=== PATIENT | male | born 1960 | race Caucasian/White ===

== ENCOUNTER 2021-11-04 17:10 | Inpatient (IN) | payer BC, OTHER ==
[2021-11-04] MEDS ORDERED: ONDANSETRON 4 MG/2 ML VIAL IVP STA (17:49)
[2021-11-04] MEDS ORDERED: SODIUM CHLORIDE 0.9% 500 ML 500 ML IV STA (17:49)
[2021-11-04] MEDS ORDERED: MORPHINE SULFATE 4 MG/ML SYRINGE IV STA (17:49)
--- NOTE | 2021-11-04 18:00 | ED ---
Abdominal Pain HPI - General Chief Complaint: Abdominal Pain Stated Complaint: abd pain Time Seen by Provider: 11/04/21 17:23 Source: patient Mode of arrival: ambulatory Limitations: no limitations - History of Present Illness Initial Comments: 61 year-old male patient present for evaluation of lower abdominal pain. Patient states he has been having symptoms on and off for the last 2 years. States that he has been diagnosed with BPH and multiple urinary tract infections but nothing ever helps. Has not had any imaging done. States that over the last three months he has had steadily increasing pain. States over the last two days it has been at its worst. States he has been unable to get out of bed. States he has had some gagging and nausea. Reports an intense burning in his lower abdomen. States he has been constipated. States he'll have small hard bowel movements and then will have diarrhea. Denies any hematochezia or melena. States he has difficulty getting urine out. Denies fever or chills. Did have appendectomy as a child. No other abdominal surgeries. Patient denies any recent rash, cough, shortness of breath, chest pain, back pain, numbness, tingling, headache, visual changes, or any other complaints. - Related Data Home Medications Medication Instructions Recorded Confirmed Atorvastatin [Lipitor] 20 mg PO HS 11/04/21 11/04/21 Chlorthalidone [Hygroten] 25 mg PO DAILY 11/04/21 11/04/21 Insuln Asp Prt/Insulin Aspart 30 unit SQ HS 11/04/21 11/04/21 [NovoLOG MIX 70-30 VIAL] Insuln Asp Prt/Insulin Aspart 70 unit SQ DAILY 11/04/21 11/04/21 [NovoLOG MIX 70-30 VIAL] amLODIPine [Norvasc] 10 mg PO DAILY 11/04/21 11/04/21 lisinopriL 40 mg PO DAILY 11/04/21 11/04/21 Allergies Allergy/AdvReac Type Severity Reaction Status Date / Time No Known Allergies Allergy Verified 11/04/21 19:04 Review of Systems ROS Statement: Those systems with pertinent positive or pertinent negative responses have been documented in the HPI. ROS Other: All systems not noted in ROS Statement are negative. Past Medical History Past Medical History: Diabetes Mellitus, Hypertension, Prostate Disorder History of Any Multi-Drug Resistant Organisms: None Reported Past Surgical History: Appendectomy Past Psychological History: No Psychological Hx Reported Smoking Status: Never smoker Past Alcohol Use History: None Reported Past Drug Use History: None Reported General Exam Limitations: no limitations General appearance: alert, in no apparent distress, other (This is a well- developed, well-nourished adult male in mild distress related to pain.) ENT exam: Present: normal exam, normal oropharynx, mucous membranes moist Respiratory exam: Present: normal lung sounds bilaterally. Absent: respiratory distress, wheezes, rales, rhonchi, stridor Cardiovascular Exam: Present: normal rhythm, tachycardia, normal heart sounds. Absent: systolic murmur, diastolic murmur, rubs, gallop, clicks GI/Abdominal exam: Present: soft, tenderness (Generalized worse over the suprapubic region), normal bowel sounds. Absent: distended, guarding, rebound, rigid Neurological exam: Present: alert, oriented X3, CN II-XII intact Psychiatric exam: Present: normal affect, normal mood Skin exam: Present: warm, dry, intact, normal color. Absent: rash Course Vital Signs 11/04/21 11/04/21 17:15 18:22 Temperature 98.1 F Pulse Rate 102 H 105 H Respiratory 18 16 Rate Blood Pressure 120/78 100/64 O2 Sat by Pulse 100 97 Oximetry Medical Decision Making - Medical Decision Making 61 year-old male patient presents for evaluation of lower abdominal pain and urinary retention. Physical exam revealed generalized abdominal tenderness worse over the suprapubic region. Bladder scan was 104ml. Labs reviewed and were unremarkable. CT abdomen and pelvis shows evidence for sigmoid diverticulitis. Patient remains quite uncomfortable despite doses of pain medication. He will be admitted for IV antibiotics and further monitoring. Patient is agreeable. Case discussed with my attending Dr. Key. - Lab Data Result diagrams: 11/04/21 17:56 11/04/21 17:56 Lab Results 11/04/21 11/04/21 11/04/21 Range/Units 17:56 17:56 17:56 WBC 10.3 (3.8-10.6) k/uL RBC 5.44 (4.30-5.90) m/uL Hgb 13.8 (13.0-17.5) gm/dL Hct 42.1 (39.0-53.0) % MCV 77.4 L (80.0-100.0) fL MCH 25.4 (25.0-35.0) pg MCHC 32.9 (31.0-37.0) g/dL RDW 15.0 (11.5-15.5) % Plt Count 316 (150-450) k/uL MPV 6.8 Neutrophils % 73 % Lymphocytes % 19 % Monocytes % 5 % Eosinophils % 1 % Basophils % 0 % Neutrophils # 7.6 (1.3-7.7) k/uL Lymphocytes # 1.9 (1.0-4.8) k/uL Monocytes # 0.5 (0-1.0) k/uL Eosinophils # 0.1 (0-0.7) k/uL Basophils # 0.0 (0-0.2) k/uL Sodium 137 (137-145) mmol/L Potassium 4.8 (3.5-5.1) mmol/L Chloride 103 (98-107) mmol/L Carbon Dioxide 20 L (22-30) mmol/L Anion Gap 14 mmol/L BUN 26 H (9-20) mg/dL Creatinine 1.73 H (0.66-1.25) mg/dL Est GFR (CKD-EPI)AfAm 48 (>60 ml/min/1.73 sqM) Est GFR (CKD-EPI)NonAf 42 (>60 ml/min/1.73 sqM) Glucose 162 H (74-99) mg/dL Plasma Lactic Acid Td 1.6 (0.7-2.0) mmol/L Calcium 10.0 (8.4-10.2) mg/dL Total Bilirubin 0.7 (0.2-1.3) mg/dL AST 26 (17-59) U/L ALT 20 (4-49) U/L Alkaline Phosphatase 123 (38-126) U/L Total Protein 8.4 H (6.3-8.2) g/dL Albumin 4.7 (3.5-5.0) g/dL Lipase 69 (23-300) U/L Urine Color Urine Appearance (Clear) Urine pH (5.0-8.0) Ur Specific [place] (1.001-1.035) Urine Protein (Negative) Urine Glucose (UA) (Negative) Urine Ketones (Negative) Urine Blood (Negative) Urine Nitrite (Negative) Urine Bilirubin (Negative) Urine Urobilinogen (<2.0) mg/dL Ur Leukocyte Esterase (Negative) 11/04/21 Range/Units 20:17 WBC (3.8-10.6) k/uL RBC (4.30-5.90) m/uL Hgb (13.0-17.5) gm/dL Hct (39.0-53.0) % MCV (80.0-100.0) fL MCH (25.0-35.0) pg MCHC (31.0-37.0) g/dL RDW (11.5-15.5) % Plt Count (150-450) k/uL MPV Neutrophils % % Lymphocytes % % Monocytes % % Eosinophils % % Basophils % % Neutrophils # (1.3-7.7) k/uL Lymphocytes # (1.0-4.8) k/uL Monocytes # (0-1.0) k/uL Eosinophils # (0-0.7) k/uL Basophils # (0-0.2) k/uL Sodium (137-145) mmol/L Potassium (3.5-5.1) mmol/L Chloride (98-107) mmol/L Carbon Dioxide (22-30) mmol/L Anion Gap mmol/L BUN (9-20) mg/dL Creatinine (0.66-1.25) mg/dL Est GFR (CKD-EPI)AfAm (>60 ml/min/1.73 sqM) Est GFR (CKD-EPI)NonAf (>60 ml/min/1.73 sqM) Glucose (74-99) mg/dL Plasma Lactic Acid Td (0.7-2.0) mmol/L Calcium (8.4-10.2) mg/dL Total Bilirubin (0.2-1.3) mg/dL AST (17-59) U/L ALT (4-49) U/L Alkaline Phosphatase (38-126) U/L Total Protein (6.3-8.2) g/dL Albumin (3.5-5.0) g/dL Lipase (23-300) U/L Urine Color Yellow Urine Appearance Clear (Clear) Urine pH 7.0 (5.0-8.0) Ur Specific [place] 1.017 (1.001-1.035) Urine Protein Negative (Negative) Urine Glucose (UA) Negative (Negative) Urine Ketones Negative (Negative) Urine Blood Negative (Negative) Urine Nitrite Negative (Negative) Urine Bilirubin Negative (Negative) Urine Urobilinogen <2.0 (<2.0) mg/dL Ur Leukocyte Esterase Negative (Negative) - Radiology Data Radiology results: report reviewed, image reviewed CT abdomen and pelvis without contrast was obtained. Report was reviewed in its entirety. Impression by Dr. Marie shows evidence for minimal sigmoid diverticulitis. There is moderate sigmoid diverticulosis. Disposition Clinical Impression: Diverticulitis, Urinary retention Disposition: ADMITTED IP TO THIS [facility] Condition: Serious Referrals: Nonstaff,Physician [Primary Care Provider] - 1-2 days Decision to Admit Reason: Admit from EC Decision Date: 11/04/21 Decision Time: 20:35
[2021-11-04 18:40] LABS: Basophils % (A) 0 %; Eosinophils # (A) 0.1 k/uL (0-0.7); Eosinophils % (A) 1 %; HCT 42.1 % (39.0-53.0); HGB 13.8 gm/dL (13.0-17.5); Lymphocytes # (A) 1.9 k/uL (1.0-4.8); Lymphocytes % (A) 19 %; MCH 25.4 pg (25.0-35.0); MCHC 32.9 g/dL (31.0-37.0); MCV 77.4 fL (80.0-100.0); Mean Platelet Volume 6.8; Monocytes # (A) 0.5 k/uL (0-1.0); Monocytes % (A) 5 %; Neutrophils # (A) 7.6 k/uL (1.3-7.7); Neutrophils % (A) 73 %; Platelet Count 316 k/uL (150-450); RBC 5.44 m/uL (4.30-5.90); WBC 10.3 k/uL (3.8-10.6)
[2021-11-04 18:53] LABS: Albumin 4.7 g/dL (3.5-5.0); Total Bilirubin 0.7 mg/dL (0.2-1.3); Total Protein 8.4 g/dL (6.3-8.2)
[2021-11-04] MEDS ORDERED: MORPHINE SULFATE 4 MG/ML SYRINGE IVP STA (19:14)
[2021-11-04 19:23] LABS: Potassium 4.8 mmol/L (3.5-5.1)
--- NOTE | 2021-11-04 20:01 | CT ---
EXAMINATION TYPE: CT abdomen pelvis wo con DATE OF EXAM: 11/04/2021 COMPARISON: None HISTORY: lower abd pain CT DLP: 870.6 mGycm Automated exposure control for dose reduction was used. Images obtained from the diaphragm to the floor the pelvis with no contrast. Lung bases are clear of consolidation. There is no pleural effusion. Heart size is normal. There is n o pericardial effusion. Liver spleen and stomach pancreas gallbladder appear normal. The bile ducts are not dilated. There is no adrenal mass. Kidneys have normal size. There is no hydronephrosis. Ureters are nondilated. There is 5 mm calculus lower pole right kidney. There is no retroperitoneal adenopathy. Bladder distends s moothly. There is no inguinal hernia. There are prostatic calcifications. There is no free fluid in t he pelvis. There is no evidence of pelvic mass. There are multiple sigmoid diverticula. There is some minimal fat stranding around the mid sigmoid colon. There is no ascites or free air. There is no bowel obstruction. Appendix not seen. No sign of thicken ed appendix. The lumbar vertebrae have fairly normal alignment. There is no compression fracture. There is disc sp serena narrowing at L5-S1. Bony pelvis is intact. The hip joints are intact. There is bilateral moderate hypertrophic acetabular spurring. Sacroiliac joints are intact. IMPRESSION: There is evidence for some minimal sigmoid diverticulitis. There is moderate sigmoid diverticulosis.
[2021-11-04] MEDS ORDERED: NALOXONE 0.4 MG/ML 1 ML VIAL IV PRN (20:32)
[2021-11-04] MEDS ORDERED: PIPERACILLIN-TAZOBACTAM 3.375 GM in SODIUM CHLORIDE 0.9% 100 ML IVPB STA (20:32)
[2021-11-04] MEDS ORDERED: ONDANSETRON 4 MG/2 ML VIAL IVP PRN (20:32)
[2021-11-04 20:54] LABS: Appearance,Urine Clear (Clear); Bilirubin,Urine Negative (Negative); Blood,Urine Negative (Negative); Color,Urine Yellow; Glucose,Urine (UA) Negative (Negative); Ketones,Urine Negative (Negative); Leukocyte Esterase,Urine Negative (Negative); Nitrite,Urine Negative (Negative); Protein,Urine Negative (Negative); Specific Gravity,Urine 1.017 (1.001-1.035); Urobilinogen,Urine <2.0 mg/dL (<2.0)
[2021-11-04] MEDS: MORPHINE SULFATE 4 MG/ML SYRINGE IV PRN (21:27)
[2021-11-04] MEDS: SODIUM CHLORIDE 0.9% 1,000 ML IV SCH (21:28)
[2021-11-05] MEDS ORDERED: LORazepam 2 MG/ML INJ IV STA (00:23)
[2021-11-05] MEDS: MORPHINE SULFATE 4 MG/ML SYRINGE IV PRN ×3 (01:39→20:51)
[2021-11-05] MEDS: PIPERACILLIN-TAZOBACTAM 3.375 GM in SODIUM CHLORIDE 0.9% 100 ML IVPB SCH ×3 (05:15→20:52)
[2021-11-05 07:07] LABS: Glucose,Whole Blood 180 mg/dL (75-99)
[2021-11-05] MEDS: INSULIN ASPART (NovoLOG) 100 UNIT/ML VIAL SQ SCH ×4 (08:01→20:52)
[2021-11-05] MEDS: LORazepam 2 MG/ML INJ IV PRN ×2 (08:02→23:21)
[2021-11-05] MEDS: SODIUM CHLORIDE 0.9% 1,000 ML IV SCH (08:02)
--- NOTE | 2021-11-05 10:52 | P.GSCN ---
History of Present Illness Consult date: 11/05/21 History of present illness: 61-year-old male presented to the emergency department with complaints of lower abdominal pain. He states that this has been going off since 2019 and has worsened since that time. He denies seeking any care for this issue due to the Covid pandemic. He states that the pain has worsened and is mostly in bilateral lower quadrants. He states that he has had extreme difficulty with urinating and can only go a dribbles. He also states that his bowel function has changed and the deals with severe constipation. He denies any nausea or vomiting. He denies any fevers, chills, chest pain or shortness of breath. He has no additional significant complaints at this time. He states he has never had a colonoscopy. He has not had any evaluation by urology for his urinary retention. On work-up, patient did have CT of the abdomen and pelvis and radiology dictated the report as mild sigmoid diverticulitis. Review of Systems All systems: negative Past Medical History Past Medical History: Diabetes Mellitus, Hypertension, Prostate Disorder History of Any Multi-Drug Resistant Organisms: None Reported Past Surgical History: Appendectomy Past Psychological History: No Psychological Hx Reported Smoking Status: Never smoker Past Alcohol Use History: None Reported Past Drug Use History: None Reported Medications and Allergies Home Medications Medication Instructions Recorded Confirmed Type Atorvastatin [Lipitor] 20 mg PO HS 11/04/21 11/04/21 History Chlorthalidone [Hygroten] 25 mg PO DAILY 11/04/21 11/04/21 History Insuln Asp Prt/Insulin Aspart 30 unit SQ HS 11/04/21 11/04/21 History [NovoLOG MIX 70-30 VIAL] Insuln Asp Prt/Insulin Aspart 70 unit SQ DAILY 11/04/21 11/04/21 History [NovoLOG MIX 70-30 VIAL] amLODIPine [Norvasc] 10 mg PO DAILY 11/04/21 11/04/21 History lisinopriL 40 mg PO DAILY 11/04/21 11/04/21 History Allergies Allergy/AdvReac Type Severity Reaction Status Date / Time No Known Allergies Allergy Verified 11/04/21 19:04 Surgical - Exam Osteopathic Statement: *. No significant issues noted on an osteopathic structural exam other than those noted in the History and Physical/Consult. Vital Signs Temp Pulse Resp BP Pulse Ox 98.1 F 102 H 18 120/78 100 11/04/21 17:15 11/04/21 17:15 11/04/21 17:15 11/04/21 17:15 11/04/21 17:15 - General well nourished, no distress - Eyes normal ocular movement - ENT normal nares, normal mucosa, no hearing loss - Neck trachea midline - Respiratory No difficulty with respiration - Abdomen Soft, tenderness to palpation in suprapubic region, no rebound, no guarding - Psychiatric oriented to time, oriented to person, oriented to place Results - Labs 11/04/21 17:56 11/04/21 17:56 Abnormal Lab Results - Last 24 Hours (Table) 11/04/21 11/04/21 11/05/21 Range/Units 17:56 17:56 07:05 MCV 77.4 L (80.0-100.0) fL Carbon Dioxide 20 L (22-30) mmol/L BUN 26 H (9-20) mg/dL Creatinine 1.73 H (0.66-1.25) mg/dL Glucose 162 H (74-99) mg/dL POC Glucose (mg/dL) 180 H (75-99) mg/dL Total Protein 8.4 H (6.3-8.2) g/dL Diabetes panel 11/04/21 Range/Units 17:56 Sodium 137 (137-145) mmol/L Potassium 4.8 (3.5-5.1) mmol/L Chloride 103 (98-107) mmol/L Carbon Dioxide 20 L (22-30) mmol/L BUN 26 H (9-20) mg/dL Creatinine 1.73 H (0.66-1.25) mg/dL Glucose 162 H (74-99) mg/dL Calcium 10.0 (8.4-10.2) mg/dL AST 26 (17-59) U/L ALT 20 (4-49) U/L Alkaline Phosphatase 123 (38-126) U/L Total Protein 8.4 H (6.3-8.2) g/dL Albumin 4.7 (3.5-5.0) g/dL Calcium panel 11/04/21 Range/Units 17:56 Calcium 10.0 (8.4-10.2) mg/dL Albumin 4.7 (3.5-5.0) g/dL Pituitary panel 11/04/21 Range/Units 17:56 Sodium 137 (137-145) mmol/L Potassium 4.8 (3.5-5.1) mmol/L Chloride 103 (98-107) mmol/L Carbon Dioxide 20 L (22-30) mmol/L BUN 26 H (9-20) mg/dL Creatinine 1.73 H (0.66-1.25) mg/dL Glucose 162 H (74-99) mg/dL Calcium 10.0 (8.4-10.2) mg/dL Adrenal panel 11/04/21 Range/Units 17:56 Sodium 137 (137-145) mmol/L Potassium 4.8 (3.5-5.1) mmol/L Chloride 103 (98-107) mmol/L Carbon Dioxide 20 L (22-30) mmol/L BUN 26 H (9-20) mg/dL Creatinine 1.73 H (0.66-1.25) mg/dL Glucose 162 H (74-99) mg/dL Calcium 10.0 (8.4-10.2) mg/dL Total Bilirubin 0.7 (0.2-1.3) mg/dL AST 26 (17-59) U/L ALT 20 (4-49) U/L Alkaline Phosphatase 123 (38-126) U/L Total Protein 8.4 H (6.3-8.2) g/dL Albumin 4.7 (3.5-5.0) g/dL Assessment and Plan Plan: 61-year-old male with diverticulitis and urinary retention. Diverticulitis treatment will be continued with IV antibiotics. We will continue patient on clear liquid diet for the time being. Urology consultation has been placed for the patient's ongoing urinary retention and pain. No plan for acute surgical intervention. We will continue with medical management. Further recommendations to be made based on the patient's clinical progress.
--- NOTE | 2021-11-05 11:08 | P.HPIM ---
History of Present Illness This is a pleasant 61 years old male with past medical history of diabetes mellitus, hypertension, hyperlipidemia Patient presents because of left lower quadrant abdominal pain or 10 months duration, also patient has been complaining from suprapubic pain for 2 years on and off, Patient wasn't very clear about the duration of his symptoms. However looks like his been having left lower quadrant worsening abdominal pain associated with some but less per day for more than a week. Associated with gastric feeling and vomiting for 5 days, and could not be very specific about when he times a day he vomits. He denies chest pain or dyspnea or coughing. No headache or weakness or numbness. No dysuria or urgency. He denies smoking, alcohol or illicit drugs. Vital showing mild tachycardia at 202. Blood pressure is borderline. CBC is unremarkable. Creatinine is elevated 1.7, unknown baseline. Give her enzymes not significantly elevated. Urinalysis is negative for infection. Stahl virus is not detected. CT of the abdomen and pelvis showing some minimal sigmoid diverticulitis. Moderate sigmoid diverticulosis. Patient received to the emergency room morphine, normal saline and started on Zosyn. Bladder scan documented as 101-150 Review of Systems CONSTITUTIONAL: No fever, no malaise, no fatigue. HEENT: No recent visual problems or hearing problems. Denied any sore throat. CARDIOVASCULAR: No orthopnea, PND, no palpitations, no syncope. PULMONARY: No shortness of breath, no cough, no hemoptysis. GASTROINTESTINAL: no retching or hiccups. Normoactive bowel sounds. NEUROLOGICAL: No headaches, no weakness, no numbness. HEMATOLOGICAL: Denies any bleeding or petechiae. GENITOURINARY: Denies any burning micturition, frequency, or urgency. MUSCULOSKELETAL/RHEUMATOLOGICAL: Denies any joint pain, swelling, or any muscle pain. ENDOCRINE: Denies any polyuria or polydipsia. Past Medical History Past Medical History: Diabetes Mellitus, Hypertension, Prostate Disorder History of Any Multi-Drug Resistant Organisms: None Reported Past Surgical History: Appendectomy Past Psychological History: No Psychological Hx Reported Smoking Status: Never smoker Past Alcohol Use History: None Reported Past Drug Use History: None Reported Medications and Allergies Home Medications Medication Instructions Recorded Confirmed Type Atorvastatin [Lipitor] 20 mg PO HS 11/04/21 11/04/21 History Chlorthalidone [Hygroten] 25 mg PO DAILY 11/04/21 11/04/21 History Insuln Asp Prt/Insulin Aspart 30 unit SQ HS 11/04/21 11/04/21 History [NovoLOG MIX 70-30 VIAL] Insuln Asp Prt/Insulin Aspart 70 unit SQ DAILY 11/04/21 11/04/21 History [NovoLOG MIX 70-30 VIAL] amLODIPine [Norvasc] 10 mg PO DAILY 11/04/21 11/04/21 History lisinopriL 40 mg PO DAILY 11/04/21 11/04/21 History Allergies Allergy/AdvReac Type Severity Reaction Status Date / Time No Known Allergies Allergy Verified 11/04/21 19:04 Physical Exam Vitals: Vital Signs Temp Pulse Pulse Resp BP BP Pulse Ox 11/05/21 08:00 97.5 F L 74 18 124/83 100 11/05/21 02:00 97.6 F 71 18 108/69 99 11/05/21 01:47 91 18 139/77 97 11/04/21 23:00 95 15 96/60 97 11/04/21 18:22 105 H 16 100/64 97 11/04/21 17:15 98.1 F 102 H 18 120/78 100 Intake and Output 11/04/21 11/05/21 11/05/21 22:59 06:59 14:59 Intake Total 300 Balance 300 Intake: Oral 300 Other: # Voids 1 Weight 87.09 kg GENERAL: The patient is alert and oriented x3, not in any acute distress. Well developed, well nourished. HEENT: Pupils are round and equally reacting to light. EOMI. No scleral icterus. No conjunctival pallor. Normocephalic, atraumatic. No pharyngeal erythema. No thyromegaly. CARDIOVASCULAR: S1 and S2 present. No murmurs, rubs, or gallops. PULMONARY: Chest is clear to auscultation, no wheezing or crackles. -ABDOMEN: Soft, left lower quadrant tenderness, no rebound tendernessended, normoactive bowel sounds. No palpable organomegaly. MUSCULOSKELETAL: No joint swelling or deformity. EXTREMITIES: No cyanosis, clubbing, or pedal edema. NEUROLOGICAL: Gross neurological examination did not reveal any focal deficits. SKIN: No rashes. no petechiae. Results CBC & Chem 7: 11/04/21 17:56 11/04/21 17:56 Labs: Abnormal Lab Results - Last 24 Hours (Table) 11/04/21 11/04/21 11/05/21 Range/Units 17:56 17:56 07:05 MCV 77.4 L (80.0-100.0) fL Carbon Dioxide 20 L (22-30) mmol/L BUN 26 H (9-20) mg/dL Creatinine 1.73 H (0.66-1.25) mg/dL Glucose 162 H (74-99) mg/dL POC Glucose (mg/dL) 180 H (75-99) mg/dL Total Protein 8.4 H (6.3-8.2) g/dL Thrombosis Risk Factor Assmnt - Choose All That Apply Each Risk Factor Represents 2 Points: Age 61-74 years Thrombosis Risk Factor Assessment Total Risk Factor Score: 2 Thrombosis Risk Factor Assessment Level: Low Risk Assessment and Plan Assessment: Acute diverticulitis Possible Acute urinary retention Hypertension Hyperlipidemia Diabetes mellitus chronic constipation Obesity with BMI of 31 Plan: This is a pleasant 61 years old male who presents with acute diverticulitis Continue with pain management, antibiotics zosyn IV fluids and bowel rest. Surgery team consult urology team were consulted Labs and medication were reviewed.. Continue same treatment. Continue with symptomatic treatment. Resume home medication. Monitor lytes and vitals. DVT and GI prophylaxis. Further recommendations depends on the clinical course of the patient DVT prophylaxis: Subcutaneous heparin GI Prophylaxis: Pepcid Prognosis is guarded
[2021-11-05 11:51] LABS: Glucose,Whole Blood 200 mg/dL (75-99)
[2021-11-05] MEDS: FAMOTIDINE 20 MG/2 ML VIAL IV SCH (12:06)
--- NOTE | 2021-11-05 14:23 | P.GSCN ---
History of Present Illness Consult date: 11/05/21 History of present illness: 61-year-old gentleman admitted the hospital with abdominal pain in the left lower quadrant consistent with diverticular disease. We are asked to see because of urinary tract issues. Ration is interviewed at the bedside. His history is thorough. He states that for several years he has had lower urinary tract symptoms. He describes week once the urgency dysuria as well as difficulty urinating with a hasn't incomplete urinary stream. He states that he was posted seen a urologist but never followed up. He has been evaluated by his primary care and treated for "multiple urinary tract infections ". He is uncertain as to whether cultures were done. He does not describe any hematuria or incontinence. Not aware of a previous PSA. He has never seen a urologist. There is no history of stones. He also has a history of recurrent diverticular disease of the colon for the last few years. The patient's urinalysis on this admission is clear despite the urinary tract symptoms that he has in the symptoms that were treated as infection in the past. The patient is diabetic. His creatinine is 1.7. His white count is 10.3. Computed tomography scan shows diverticulitis. He has no pneumaturia or fecal urea. Past Medical History Past Medical History: Diabetes Mellitus, Hypertension, Prostate Disorder History of Any Multi-Drug Resistant Organisms: None Reported Past Surgical History: Appendectomy Past Psychological History: No Psychological Hx Reported Smoking Status: Never smoker Past Alcohol Use History: None Reported Past Drug Use History: None Reported Medications and Allergies Home Medications Medication Instructions Recorded Confirmed Type Atorvastatin [Lipitor] 20 mg PO HS 11/04/21 11/04/21 History Chlorthalidone [Hygroten] 25 mg PO DAILY 11/04/21 11/04/21 History Insuln Asp Prt/Insulin Aspart 30 unit SQ HS 11/04/21 11/04/21 History [NovoLOG MIX 70-30 VIAL] Insuln Asp Prt/Insulin Aspart 70 unit SQ DAILY 11/04/21 11/04/21 History [NovoLOG MIX 70-30 VIAL] amLODIPine [Norvasc] 10 mg PO DAILY 11/04/21 11/04/21 History lisinopriL 40 mg PO DAILY 11/04/21 11/04/21 History Allergies Allergy/AdvReac Type Severity Reaction Status Date / Time No Known Allergies Allergy Verified 11/04/21 19:04 Surgical - Exam Vital Signs Temp Pulse Resp BP Pulse Ox 98.1 F 102 H 18 120/78 100 11/04/21 17:15 11/04/21 17:15 11/04/21 17:15 11/04/21 17:15 11/04/21 17:15 - General well developed, well nourished, no distress - Eyes PERRL - ENT normal mucosa - Neck trachea midline - Respiratory normal expansion, normal respiratory effort - Cardiovascular Rhythm: regular - Abdomen Abdomen: soft, non tender - Genitourinary Prostate 30 g soft and slightly tender benign normal penis with no external lesions, testicles present - Integumentary no rash, no growths - Neurologic normal coordination, normal sensation - Musculoskeletal normal gait - Psychiatric oriented to time, oriented to person, oriented to place, speech is normal, memory intact Results - Labs 11/04/21 17:56 11/04/21 17:56 Abnormal Lab Results - Last 24 Hours (Table) 11/04/21 11/04/21 11/05/21 Range/Units 17:56 17:56 07:05 MCV 77.4 L (80.0-100.0) fL Carbon Dioxide 20 L (22-30) mmol/L BUN 26 H (9-20) mg/dL Creatinine 1.73 H (0.66-1.25) mg/dL Glucose 162 H (74-99) mg/dL POC Glucose (mg/dL) 180 H (75-99) mg/dL Total Protein 8.4 H (6.3-8.2) g/dL 11/05/21 Range/Units 11:50 MCV (80.0-100.0) fL Carbon Dioxide (22-30) mmol/L BUN (9-20) mg/dL Creatinine (0.66-1.25) mg/dL Glucose (74-99) mg/dL POC Glucose (mg/dL) 200 H (75-99) mg/dL Total Protein (6.3-8.2) g/dL Diabetes panel 11/04/21 Range/Units 17:56 Sodium 137 (137-145) mmol/L Potassium 4.8 (3.5-5.1) mmol/L Chloride 103 (98-107) mmol/L Carbon Dioxide 20 L (22-30) mmol/L BUN 26 H (9-20) mg/dL Creatinine 1.73 H (0.66-1.25) mg/dL Glucose 162 H (74-99) mg/dL Calcium 10.0 (8.4-10.2) mg/dL AST 26 (17-59) U/L ALT 20 (4-49) U/L Alkaline Phosphatase 123 (38-126) U/L Total Protein 8.4 H (6.3-8.2) g/dL Albumin 4.7 (3.5-5.0) g/dL Calcium panel 11/04/21 Range/Units 17:56 Calcium 10.0 (8.4-10.2) mg/dL Albumin 4.7 (3.5-5.0) g/dL Pituitary panel 11/04/21 Range/Units 17:56 Sodium 137 (137-145) mmol/L Potassium 4.8 (3.5-5.1) mmol/L Chloride 103 (98-107) mmol/L Carbon Dioxide 20 L (22-30) mmol/L BUN 26 H (9-20) mg/dL Creatinine 1.73 H (0.66-1.25) mg/dL Glucose 162 H (74-99) mg/dL Calcium 10.0 (8.4-10.2) mg/dL Adrenal panel 11/04/21 Range/Units 17:56 Sodium 137 (137-145) mmol/L Potassium 4.8 (3.5-5.1) mmol/L Chloride 103 (98-107) mmol/L Carbon Dioxide 20 L (22-30) mmol/L BUN 26 H (9-20) mg/dL Creatinine 1.73 H (0.66-1.25) mg/dL Glucose 162 H (74-99) mg/dL Calcium 10.0 (8.4-10.2) mg/dL Total Bilirubin 0.7 (0.2-1.3) mg/dL AST 26 (17-59) U/L ALT 20 (4-49) U/L Alkaline Phosphatase 123 (38-126) U/L Total Protein 8.4 H (6.3-8.2) g/dL Albumin 4.7 (3.5-5.0) g/dL - Imaging CT scan - abdomen: report reviewed, image reviewed CT scan - pelvis: report reviewed, image reviewed Assessment and Plan Assessment: Impression: Acute diverticulitis. Lower urinary tract symptoms acute and chron ic. History of possible prostatitis. Recommendations: Without records is difficult to say whether his symptoms are related to recurrent diverticulitis, recurrent prostatitis BPH or a combination of there of. I will obtain a urine residual although his bladder. Appeared to be relatively empty on the computed tomography scan. The prostate did not show anything remarkable. The prostate was benign on examination. We'll also start him on some Flomax. He will need to be follow-up as an outpatient.
[2021-11-05 16:45] LABS: Glucose,Whole Blood 163 mg/dL (75-99)
[2021-11-05] MEDS: TAMSULOSIN 0.4 MG CAP.ER.24H PO SCH (17:20)
[2021-11-05 20:24] LABS: Glucose,Whole Blood 125 mg/dL (75-99)
[2021-11-05] MEDS: HEPARIN SODIUM,PORCINE/PF 5,000 UNIT/0.5 ML SYRINGE SQ SCH (20:52)
[2021-11-06 00:04] LABS: African American GFR (CKD) 60 (>60 ml/min/1.73 sqM); Anion Gap 11 mmol/L; Blood Urea Nitrogen 20 mg/dL (9-20); Calcium 9.2 mg/dL (8.4-10.2); Carbon Dioxide 19 mmol/L (22-30); Chloride 105 mmol/L (98-107); Glucose 106 mg/dL (74-99); Magnesium 1.7 mg/dL (1.6-2.3); Non-African American GFR(CKD) 52 (>60 ml/min/1.73 sqM); Potassium 4.1 mmol/L (3.5-5.1); Sodium 135 mmol/L (137-145)
[2021-11-06] MEDS: SODIUM CHLORIDE 0.9% 1,000 ML IV SCH ×2 (04:16→13:29)
[2021-11-06] MEDS: PIPERACILLIN-TAZOBACTAM 3.375 GM in SODIUM CHLORIDE 0.9% 100 ML IVPB SCH ×3 (04:36→21:23)
[2021-11-06 07:08] LABS: Glucose,Whole Blood 113 mg/dL (75-99)
[2021-11-06] MEDS: INSULIN ASPART (NovoLOG) 100 UNIT/ML VIAL SQ SCH ×4 (07:32→20:58)
[2021-11-06] MEDS: HEPARIN SODIUM,PORCINE/PF 5,000 UNIT/0.5 ML SYRINGE SQ SCH ×2 (08:14→21:23)
[2021-11-06] MEDS: SENNOSIDES 8.6 MG TAB PO SCH ×2 (08:14→21:24)
[2021-11-06] MEDS: MORPHINE SULFATE 4 MG/ML SYRINGE IV PRN ×3 (08:36→17:40)
[2021-11-06] MEDS: FAMOTIDINE 20 MG/2 ML VIAL IV SCH (08:46)
--- NOTE | 2021-11-06 10:30 | P.CRDCN ---
History of Present Illness Consult date: 11/06/21 History of present illness: HISTORY OF PRESENT ILLNESS: This is a 61-year-old male with a past medical history significant for diabetes, hyperlipidemia, and hypertension. Patient does not follow with a cdc associate. We have been asked to see the patient in consultation for chest pain. Patient examined at the bedside. Patient is admitted to the hospital secondary to abdominal pain. Patient is being treated for diverticulitis. General surgery is following. The patient states yesterday he was having a lot of abdominal pain and then he felt like the pain went up into his chest. He states it felt like a brick was sitting on his chest. He states the chest pain and then went away and he began having more abdominal pain again. He reports having a a lot of gas and discomfort yesterday. The patient appears to be visibly uncomfortable and complains of significant abdominal pain this morning. EKG reveals sinus mechanism with no signs of acute ischemia CT abdomen and pelvis: Evidence for minimal sigmoid diverticulitis. There is moderate sigmoid diverticulosis. Laboratory data: WBC 10.3. Hemoglobin 13.8. Platelet count 316. Sodium 135. Potassium 4.1. BUN 20. Creatinine 1.73. Repeat 1.45. Magnesium 1.7. Troponin negative 2. Current home cardiac medications include Lipitor 20 mg at night, lisinopril 40 mg daily, Norvasc 10 mg daily, and chlorthalidone 25 mg daily REVIEW OF SYSTEMS: At the time of my exam: CONSTITUTIONAL: Denies fever or chills. HEENT: Denies blurred vision, vision changes, or eye pain. Denies hemoptysis CARDIOVASCULAR: Denies chest pain. Denies orthopnea. Denies PND. Denies palpitations RESPIRATORY: Denies shortness of breath. GASTROINTESTINAL: + abdominal pain HEMATOLOGIC: Denies bleeding disorders. GENITOURINARY: Denies any blood in urine. SKIN: Denies pruitis. Denies rash. PHYSICAL EXAM: VITAL SIGNS: Reviewed. GENERAL: Well-developed who appears to be in pain and uncomfortable at the time of examination HEENT: Head is normocephalic. Pupils are equal, round. Sclerae anicteric. Mucous membranes of the mouth are moist. Neck supple. No JVD or thyromegaly LUNGS: Respirations even and unlabored. Lungs essentially clear to auscultation bilaterally. HEART: Regular rate and rhythm. S1 and S2 heard. ABDOMEN: Firm. Distended. Tenderness with minimal palpation. EXTREMITIES: Normal range of motion. No clubbing or cyanosis. Peripheral pulses intact. No lower extremity edema NEUROLOGIC: Awake and alert. Oriented x 3. ASSESSMENT: Chest pain, atypical, may be secondary to severe abdominal pain, troponin negative x 2 Abdominal pain Diverticulitis Hypertension Hyperlipidemia Diabetes PLAN: An acute coronary event has been ruled out General surgery following Continue home cardiac medications Obtain 2D echo to assess cardiac structure and function Further recommendations pending patient course Nurse practitioner note has been reviewed by physician. Signing provider agrees with the documented findings, assessment, and plan of care. Past Medical History Past Medical History: Diabetes Mellitus, Hypertension, Prostate Disorder History of Any Multi-Drug Resistant Organisms: None Reported Past Surgical History: Appendectomy Past Psychological History: No Psychological Hx Reported Smoking Status: Never smoker Past Alcohol Use History: None Reported Past Drug Use History: None Reported Medications and Allergies Home Medications Medication Instructions Recorded Confirmed Type Atorvastatin [Lipitor] 20 mg PO HS 11/04/21 11/04/21 History Chlorthalidone [Hygroten] 25 mg PO DAILY 11/04/21 11/04/21 History Insuln Asp Prt/Insulin Aspart 30 unit SQ HS 11/04/21 11/04/21 History [NovoLOG MIX 70-30 VIAL] Insuln Asp Prt/Insulin Aspart 70 unit SQ DAILY 11/04/21 11/04/21 History [NovoLOG MIX 70-30 VIAL] amLODIPine [Norvasc] 10 mg PO DAILY 11/04/21 11/04/21 History lisinopriL 40 mg PO DAILY 11/04/21 11/04/21 History Allergies Allergy/AdvReac Type Severity Reaction Status Date / Time No Known Allergies Allergy Verified 11/04/21 19:04 Physical Exam Vitals: Vital Signs Temp Pulse Resp BP Pulse Ox 11/06/21 08:00 97.6 F 67 100/65 97 11/06/21 01:23 99.7 F H 71 18 100/64 96 11/05/21 23:17 75 100/66 99 11/05/21 19:21 97.5 F L 70 15 112/75 98 11/05/21 14:00 97.5 F L 75 16 92/57 98 Intake and Output 11/05/21 11/06/21 11/06/21 22:59 06:59 14:59 Intake Total 600 750 Balance 600 750 Intake: Intake, IV Titration 600 750 Amount Sodium Chloride 0.9% 1, 600 750 000 ml @ 75 mls/hr IV . [id number] [facility] Rx#:[id number] Other: # Voids 2 Results 11/04/21 17:56 11/05/21 23:26 Cardiac Enzymes 11/05/21 11/06/21 Range/Units 23:26 04:20 Troponin I <0.012 <0.012 (0.000-0.034) ng/mL Comprehensive Metabolic Panel 11/05/21 Range/Units 23:26 Sodium 135 L (137-145) mmol/L Potassium 4.1 (3.5-5.1) mmol/L Chloride 105 (98-107) mmol/L Carbon Dioxide 19 L (22-30) mmol/L BUN 20 (9-20) mg/dL Creatinine 1.45 H (0.66-1.25) mg/dL Glucose 106 H (74-99) mg/dL Calcium 9.2 (8.4-10.2) mg/dL Current Medications Generic Name Dose Route Start Last Admin Trade Name Freq PRN Reason Stop Dose Admin Famotidine 20 mg 11/05/21 12:00 11/05/21 12:06 Famotidine 20 Mg/2 Ml Vial IV 20 mg DAILY [facility] Administration Heparin Sodium (Porcine) 5,000 unit 11/05/21 21:00 11/06/21 08:14 Heparin Sodium,Porcine/Pf 5,000 Unit/0.5 Ml Syringe SQ 5,000 unit Q12HR [facility] Administration Piperacillin Sod/Tazobactam 100 mls @ 25 mls/hr 11/05/21 05:00 11/06/21 04:36 Sod 3.375 gm/ Sodium Chloride IVPB 25 mls/hr Q8H [facility] Administration Sodium Chloride 1,000 mls @ 75 mls/hr 11/04/21 20:45 11/06/21 04:16 Saline 0.9% IV Not Given .[id number] [facility] [place] Insulin Aspart 0 unit 11/05/21 07:30 11/06/21 07:32 Insulin Aspart (Novolog) 100 Unit/Ml Vial SQ Not Given ACHS [facility] [place] Protocol Lorazepam 1 mg 11/05/21 00:23 11/05/21 23:21 Lorazepam 2 Mg/Ml Inj IV 1 mg Q6HR PRN Administration Anxiety Morphine Sulfate 4 mg 11/04/21 20:32 11/05/21 20:51 Morphine Sulfate 4 Mg/Ml Syringe IV 4 mg Q4HR PRN Administration Severe Pain Naloxone HCl 0.2 mg 11/04/21 20:32 Naloxone 0.4 Mg/Ml 1 Ml Vial IV Q2M PRN Opioid Reversal Ondansetron HCl 4 mg 11/04/21 20:32 Ondansetron 4 Mg/2 Ml Vial IVP Q8HR PRN Nausea And Vomiting Senna 8.6 mg 11/06/21 09:00 11/06/21 08:14 Sennosides 8.6 Mg Tab PO 8.6 mg BID [facility] Administration Tamsulosin HCl 0.4 mg 11/05/21 18:30 11/05/21 17:20 Tamsulosin 0.4 Mg Cap.Er.24h PO 0.4 mg PC-SUPPER [facility] Administration Intake and Output 11/05/21 11/06/21 11/06/21 22:59 06:59 14:59 Intake Total 600 750 Balance 600 750 Intake: Intake, IV Titration 600 750 Amount Sodium Chloride 0.9% 1, 600 750 000 ml @ 75 mls/hr IV . [id number] [facility] Rx#:[id number] Other: # Voids 2 11/04/21 17:56 11/05/21 23:26
[2021-11-06 10:50] LABS: African American GFR (CKD) 54 (>60 ml/min/1.73 sqM); Anion Gap 6 mmol/L; Blood Urea Nitrogen 17 mg/dL (9-20); Calcium 8.7 mg/dL (8.4-10.2); Carbon Dioxide 24 mmol/L (22-30); Chloride 105 mmol/L (98-107); Glucose 118 mg/dL (74-99); Non-African American GFR(CKD) 47 (>60 ml/min/1.73 sqM); Potassium 3.9 mmol/L (3.5-5.1); Sodium 135 mmol/L (137-145)
[2021-11-06 11:59] LABS: Glucose,Whole Blood 106 mg/dL (75-99)
[2021-11-06 12:49] LABS: Basophils # (A) 0.03 X 10*3/uL (0.00-0.10); Basophils % (A) 0.4 %; Eosinophils # (A) 0.21 X 10*3/uL (0.04-0.35); Eosinophils % (A) 2.5 %; HCT 35.3 % (39.6-50.0); HGB 11.3 g/dL (13.0-17.0); Immature Grans, Automated 0.4 %; Lymphocytes # (A) 1.67 X 10*3/uL (0.90-5.00); Lymphocytes % (A) 20.1 %; MCH 24.4 pg (27.0-32.0); MCV 76.2 fL (80.0-97.0); Mean Platelet Volume 9.3 fL (9.5-12.2); Monocytes # (A) 0.47 X 10*3/uL (0.20-1.00); Monocytes % (A) 5.7 %; NRBC Per 100 WBC 0 /100 WBCS (0.0-0.0); Neutrophils % (A) 70.9 %; Platelet Count 236 X 10*3/uL (140-440); RBC 4.63 X 10*6/uL (4.40-5.60); RDW 14.6 % (11.5-14.5); WBC 8.31 X 10*3/uL (4.50-10.00)
--- NOTE | 2021-11-06 14:03 | P.PN ---
Subjective Progress Note Date: 11/06/21 Patient seen and examined at bedside. States he continues to have some lower abdominal pain. Denies any nausea or vomiting. States he is having flatus but no bowel movement. He was evaluated by urology. Objective - Vital Signs Vital signs: Vital Signs Temp 97.6 F 11/06/21 08:00 Pulse 67 11/06/21 08:00 Resp 18 11/06/21 07:40 BP 100/65 11/06/21 08:00 Pulse Ox 97 11/06/21 08:00 Intake & Output 11/05/21 11/06/21 11/06/21 18:59 06:59 18:59 Intake Total 600 750 Balance 600 750 Intake: Intake, IV Titration 600 750 Amount Sodium Chloride 0.9% 1, 600 750 000 ml @ 75 mls/hr IV . [id number] [facility] Rx#:[id number] Other: # Voids 2 - Constitutional General appearance: Present: cooperative, no acute distress - Gastrointestinal Gastrointestinal Comment(s): Soft, mild lower abdominal tenderness, nondistended, no rebound, no guarding - Psychiatric Psychiatric: Present: A&O x's 3 - Labs CBC & Chem 7: 11/06/21 04:20 11/06/21 10:19 Labs: Abnormal Lab Results - Last 24 Hours (Table) 11/05/21 11/05/21 11/05/21 Range/Units 16:43 20:19 23:26 Hgb (13.0-17.0) g/dL Hct (39.6-50.0) % MCV (80.0-97.0) fL MCH (27.0-32.0) pg RDW (11.5-14.5) % MPV (9.5-12.2) fL Sodium 135 L (137-145) mmol/L Carbon Dioxide 19 L (22-30) mmol/L Creatinine 1.45 H (0.66-1.25) mg/dL Glucose 106 H (74-99) mg/dL POC Glucose (mg/dL) 163 H 125 H (75-99) mg/dL Hemoglobin A1c (0.0-6.0) % 11/06/21 11/06/21 11/06/21 Range/Units 04:20 04:20 07:07 Hgb 11.3 L (13.0-17.0) g/dL Hct 35.3 L (39.6-50.0) % MCV 76.2 L (80.0-97.0) fL MCH 24.4 L (27.0-32.0) pg RDW 14.6 H (11.5-14.5) % MPV 9.3 L (9.5-12.2) fL Sodium (137-145) mmol/L Carbon Dioxide (22-30) mmol/L Creatinine (0.66-1.25) mg/dL Glucose (74-99) mg/dL POC Glucose (mg/dL) 113 H (75-99) mg/dL Hemoglobin A1c 9.0 H (0.0-6.0) % 11/06/21 11/06/21 Range/Units 10:19 11:57 Hgb (13.0-17.0) g/dL Hct (39.6-50.0) % MCV (80.0-97.0) fL MCH (27.0-32.0) pg RDW (11.5-14.5) % MPV (9.5-12.2) fL Sodium 135 L (137-145) mmol/L Carbon Dioxide (22-30) mmol/L Creatinine 1.57 H (0.66-1.25) mg/dL Glucose 118 H (74-99) mg/dL POC Glucose (mg/dL) 106 H (75-99) mg/dL Hemoglobin A1c (0.0-6.0) % Microbiology - Last 24 Hours (Table) 11/04/21 20:45 Blood Culture - Preliminary Blood No Growth after 24 hours 11/04/21 20:30 Blood Culture - Preliminary Blood No Growth after 24 hours Assessment and Plan Plan: 61-year-old male with diverticulitis and urinary retention. - Patient evaluated by urology for urinary retention - Continue with IV antibiotics for diverticulitis - Continue with stool softeners - Advance to full liquid diet - Continue medical recommendations, no plan for surgical intervention at this ti me. I would recommend colonoscopy as an outpatient.
[2021-11-06 16:41] LABS: Glucose,Whole Blood 85 mg/dL (75-99)
[2021-11-06] MEDS: TAMSULOSIN 0.4 MG CAP.ER.24H PO SCH (17:40)
[2021-11-06 20:49] LABS: Glucose,Whole Blood 126 mg/dL (75-99)
[2021-11-06] MEDS: LORazepam 2 MG/ML INJ IV PRN (21:24)
--- NOTE | 2021-11-07 00:33 | P.PN ---
Subjective Progress Note Date: 11/06/21 This is a pleasant 61 years old male with past medical history of diabetes mellitus, hypertension, hyperlipidemia Patient presents because of left lower quadrant abdominal pain or 10 months duration, also patient has been complaining from suprapubic pain for 2 years on and off, Patient wasn't very clear about the duration of his symptoms. However looks like his been having left lower quadrant worsening abdominal pain associated with some but less per day for more than a week. Associated with gastric feeling and vomiting for 5 days, and could not be very specific about when he times a day he vomits. He denies chest pain or dyspnea or coughing. No headache or weakness or numbness. No dysuria or urgency. He denies smoking, alcohol or illicit drugs. Vital showing mild tachycardia at 202. Blood pressure is borderline. CBC is unremarkable. Creatinine is elevated 1.7, unknown baseline. Give her enzymes not significantly elevated. Urinalysis is negative for infection. Stahl virus is not detected. CT of the abdomen and pelvis showing some minimal sigmoid diverticulitis. Moderate sigmoid diverticulosis. Patient received to the emergency room morphine, normal saline and started on Zosyn. Bladder scan documented as 101-150 11/06/2021 Patient is seen in follow up this morning and continues to have abdominal pain in the lower left and right quadrant in the suprapubic area with extreme tenderness on palpation. General surgery Dr. Lacey and urology has evaluated the patient and recommending continuing with conservative management and started on Flomax. Diet being advanced and patient maintained on IV antibiotics. Patient also reports to some chest pain, epigastric and cardiology consulted. Troponins have been negative. 2d echo ordered and pending. Labs: sodium is 135, potassium is 3.9, bun is 17, creatinine is 1.57, calcium is 8.7 Review of systems: Constitutional: reports of fatigue and lack of sleep, denies fever or chills Cardio: reports chest pain, denies palpitations Resp: no reports of shortness of breath or cough GI: reports abdominal pain and discomfort : reports suprapubic pain and difficulty retaining, but is urinating Neuro: no reports of numbness, reports generalized weakness and feeling of lightheadedness while getting up Active Medications Famotidine (Famotidine 20 Mg/2 Ml Vial) 20 mg IV DAILY [facility] Last Admin: 11/06/21 08:46 Dose: 20 mg Documented by: Heparin Sodium (Porcine) (Heparin Sodium,Porcine/Pf 5,000 Unit/0.5 Ml Syringe) 5,000 unit SQ Q12HR [facility] Last Admin: 11/06/21 21:23 Dose: 5,000 unit Documented by: Piperacillin Sod/Tazobactam (Sod 3.375 gm/ Sodium Chloride) 100 mls @ 25 mls/hr IVPB Q8H [facility] Last Admin: 11/06/21 21:23 Dose: 25 mls/hr Documented by: Sodium Chloride (Saline 0.9%) 1,000 mls @ 75 mls/hr IV .[id number] [facility] Last Admin: 11/06/21 13:29 Dose: 75 mls/hr Documented by: Insulin Aspart (Insulin Aspart (Novolog) 100 Unit/Ml Vial) 0 unit SQ ACHS [facility]; Protocol Last Admin: 11/06/21 20:58 Dose: Not Given Documented by: Lorazepam (Lorazepam 2 Mg/Ml Inj) 1 mg IV Q6HR PRN PRN Reason: Anxiety Last Admin: 11/06/21 21:24 Dose: 1 mg Documented by: Morphine Sulfate (Morphine Sulfate 4 Mg/Ml Syringe) 4 mg IV Q4HR PRN PRN Reason: Severe Pain Last Admin: 11/06/21 17:40 Dose: 4 mg Documented by: Naloxone HCl (Naloxone 0.4 Mg/Ml 1 Ml Vial) 0.2 mg IV Q2M PRN PRN Reason: Opioid Reversal Ondansetron HCl (Ondansetron 4 Mg/2 Ml Vial) 4 mg IVP Q8HR PRN PRN Reason: Nausea And Vomiting Senna (Sennosides 8.6 Mg Tab) 8.6 mg PO BID [facility] Last Admin: 11/06/21 21:24 Dose: 8.6 mg Documented by: Tamsulosin HCl (Tamsulosin 0.4 Mg Cap.Er.24h) 0.4 mg PO PC-SUPPER [facility] Last Admin: 11/06/21 17:40 Dose: 0.4 mg Documented by: Physical Exam: GENERAL: The patient is alert and oriented x3, not in any acute distress. Well developed, well nourished. HEENT: Pupils are round and equally reacting to light. EOMI. No scleral icterus. No conjunctival pallor. Normocephalic, atraumatic. No pharyngeal erythema. No thyromegaly. CARDIOVASCULAR: S1 and S2 present. No murmurs, rubs, or gallops. PULMONARY: Chest is clear to auscultation, no wheezing or crackles. ABDOMEN: Soft, left lower and right quadrant tenderness, mostly suprapubic, no rebound tenderness, normoactive bowel sounds. No palpable organomegaly. MUSCULOSKELETAL: No joint swelling or deformity. EXTREMITIES: No cyanosis, clubbing, or pedal edema. NEUROLOGICAL: Gross neurological examination did not reveal any focal deficits. SKIN: No rashes. no petechiae. Assessment: Acute diverticulitis Possible Acute urinary retention acute kidney injury, most likely prerenal secondary to dehydration chest pain, ruled out acs Hypertension Hyperlipidemia Diabetes mellitus chronic constipation Obesity with BMI of 31 GI prophylaxis DVT porphylaxis Full code Plan: This is a pleasant 61 years old male who presents with acute diverticulitis and maintained on IV antibiotics with general surgery and urology following. Cardiology consulted and 2D echo ordered and pending. Troponins are negative. Diet being advanced per surgery Dr. Lacey and recommending conservative management with outpatient colonoscopy. Creatinine elevated and will continue IV normal saline and repeat am labs. Encouraged oral intake and increased activity as tolerated. Encouraged the patient to get out of bed. Urology recommending to continue with flomax and outpatient follow up. Will repeat am labs and possible discharge in 24 hours. Objective - Vital Signs Vital signs: Vital Signs Temp 97.6 F 11/06/21 08:00 Pulse 67 11/06/21 08:00 Resp 18 11/06/21 01:23 BP 100/65 11/06/21 08:00 Pulse Ox 97 11/06/21 08:00 Intake & Output 11/05/21 11/06/21 11/06/21 18:59 06:59 18:59 Intake Total 600 750 Balance 600 750 Intake: Intake, IV Titration 600 750 Amount Sodium Chloride 0.9% 1, 600 750 000 ml @ 75 mls/hr IV . [id number] [facility] Rx#:[id number] Other: # Voids 2 - Labs CBC & Chem 7: 11/06/21 04:20 11/06/21 10:19 Labs: Abnormal Lab Results - Last 24 Hours (Table) 11/05/21 11/05/21 11/05/21 Range/Units 11:50 16:43 20:19 Sodium (137-145) mmol/L Carbon Dioxide (22-30) mmol/L Creatinine (0.66-1.25) mg/dL Glucose (74-99) mg/dL POC Glucose (mg/dL) 200 H 163 H 125 H (75-99) mg/dL 11/05/21 11/06/21 Range/Units 23:26 07:07 Sodium 135 L (137-145) mmol/L Carbon Dioxide 19 L (22-30) mmol/L Creatinine 1.45 H (0.66-1.25) mg/dL Glucose 106 H (74-99) mg/dL POC Glucose (mg/dL) 113 H (75-99) mg/dL Microbiology - Last 24 Hours (Table) 11/04/21 20:45 Blood Culture - Preliminary Blood No Growth after 24 hours 11/04/21 20:30 Blood Culture - Preliminary Blood No Growth after 24 hours
[2021-11-07] MEDS: SODIUM CHLORIDE 0.9% 1,000 ML IV SCH (01:34)
[2021-11-07] MEDS: MORPHINE SULFATE 4 MG/ML SYRINGE IV PRN ×2 (01:34→10:58)
[2021-11-07] MEDS: PIPERACILLIN-TAZOBACTAM 3.375 GM in SODIUM CHLORIDE 0.9% 100 ML IVPB SCH ×3 (06:16→22:46)
[2021-11-07 07:32] LABS: Glucose,Whole Blood 99 mg/dL (75-99)
[2021-11-07] MEDS: INSULIN ASPART (NovoLOG) 100 UNIT/ML VIAL SQ SCH ×4 (07:46→22:38)
[2021-11-07] MEDS: FAMOTIDINE 20 MG/2 ML VIAL IV SCH (08:06)
[2021-11-07] MEDS: SENNOSIDES 8.6 MG TAB PO SCH ×2 (08:06→22:47)
[2021-11-07] MEDS: HEPARIN SODIUM,PORCINE/PF 5,000 UNIT/0.5 ML SYRINGE SQ SCH ×2 (08:06→22:47)
--- NOTE | 2021-11-07 08:52 | P.PN ---
Subjective Progress Note Date: 11/07/21 Patient seen and examined at bedside. Still complains of lower abdominal pain. States he is had significant amount of flatus but no bowel movement. Denies nausea or vomiting. Tolerating the full liquid diet. Objective - Vital Signs Vital signs: Vital Signs Temp 97.4 F L 11/07/21 08:00 Pulse 71 11/07/21 08:00 Resp 19 11/07/21 08:00 BP 124/84 11/07/21 08:00 Pulse Ox 99 11/07/21 08:00 Intake & Output 11/06/21 11/07/21 11/07/21 18:59 06:59 18:59 Intake Total 700 Output Total 1 Balance 700 -1 Intake: Intake, IV Titration 700 Amount Sodium Chloride 0.9% 1, 700 000 ml @ 75 mls/hr IV . [id number] [facility] Rx#:[id number] Output: Urine 1 Other: # Voids 3 # Bowel Movements 0 - Constitutional General appearance: Present: cooperative, no acute distress - Gastrointestinal Gastrointestinal Comment(s): Soft, tender to palpation in suprapubic region, nondistended, no rebound, no guarding - Psychiatric Psychiatric: Present: A&O x's 3 - Labs CBC & Chem 7: 11/06/21 04:20 11/06/21 10:19 Labs: Abnormal Lab Results - Last 24 Hours (Table) 11/06/21 11/06/21 11/06/21 Range/Units 04:20 04:20 10:19 Hgb 11.3 L (13.0-17.0) g/dL Hct 35.3 L (39.6-50.0) % MCV 76.2 L (80.0-97.0) fL MCH 24.4 L (27.0-32.0) pg RDW 14.6 H (11.5-14.5) % MPV 9.3 L (9.5-12.2) fL Sodium 135 L (137-145) mmol/L Creatinine 1.57 H (0.66-1.25) mg/dL Glucose 118 H (74-99) mg/dL POC Glucose (mg/dL) (75-99) mg/dL Hemoglobin A1c 9.0 H (0.0-6.0) % 11/06/21 11/06/21 Range/Units 11:57 20:47 Hgb (13.0-17.0) g/dL Hct (39.6-50.0) % MCV (80.0-97.0) fL MCH (27.0-32.0) pg RDW (11.5-14.5) % MPV (9.5-12.2) fL Sodium (137-145) mmol/L Creatinine (0.66-1.25) mg/dL Glucose (74-99) mg/dL POC Glucose (mg/dL) 106 H 126 H (75-99) mg/dL Hemoglobin A1c (0.0-6.0) % Microbiology - Last 24 Hours (Table) 11/04/21 20:30 Blood Culture - Preliminary Blood No Growth after 48 hours 11/04/21 20:45 Blood Culture - Preliminary Blood No Growth after 48 hours Assessment and Plan Plan: 61-year-old male with diverticulitis and urinary retention. - Patient evaluated by urology for urinary retention - Continue with IV antibiotics for diverticulitis, Patient is beginning to have some increased bowel function with significant flatus - Continue with stool softeners - Continue full liquid diet - Continue medical recommendations, no plan for surgical intervention at this time. I would recommend colonoscopy as an outpatient in 6-8 weeks
[2021-11-07 09:42] LABS: African American GFR (CKD) 52 (>60 ml/min/1.73 sqM); Anion Gap 7 mmol/L; Blood Urea Nitrogen 15 mg/dL (9-20); Calcium 9.1 mg/dL (8.4-10.2); Carbon Dioxide 23 mmol/L (22-30); Chloride 103 mmol/L (98-107); Glucose 189 mg/dL (74-99); Non-African American GFR(CKD) 45 (>60 ml/min/1.73 sqM); Potassium 3.9 mmol/L (3.5-5.1); Sodium 133 mmol/L (137-145)
--- NOTE | 2021-11-07 10:32 | ECHOF ---
Referral Reason:LV function, chest pain MEASUREMENTS -------- HEIGHT: 167.6 cm WEIGHT: 87.1 kg BP: RVIDd: 2.2 cm (< 3.3) IVSd: 1.1 cm (0.6 - 1.1) LVIDd: 4.1 cm (3.9 - 5.3) LVPWd: 1.3 cm (0.6 - 1.1) IVSs: 1.6 cm LVIDs: 2.0 cm LVPWs: 2.0 cm LAESV Index (A-L): 19.26 ml/m Ao Diam: 3.9 cm (2.0 - 3.7) AV Cusp: 2.0 cm (1.5 - 2.6) LA Diam: 2.2 cm (2.7 - 3.8) MV EXCURSION: 11.453 mm (> 18.000) MV EF SLOPE: 78 mm/s (70 - 150) EPSS: 0.7 cm MV E Sea: 0.74 m/s MV DecT: 150 ms MV A Sea: 0.71 m/s MV E/A Ratio: 1.03 AR PHT: 836 ms RAP: 5.00 mmHg RVSP: 10.74 mmHg FINDINGS -------- Sinus rhythm. This was a technically good study. The left ventricular size is normal. Left ventricular wall thickness is normal. Overall left vent ricular systolic function is normal with, an EF between 55 - 60 %. The diastolic filling pattern is normal for the age of the patient {E/E'}. The right ventricle is normal in size. The left atrial size is normal. Normal LA size by volume 22+/-6 ml/m2. The right atrial size is normal. The aortic valve is trileaflet and appears structurally normal. Trace amount of aortic regurgitatio n. The mitral valve is normal. There is trace mitral regurgitation. The tricuspid valve appears structurally normal. Trace tricuspid regurgitation present. Right mikey tricular systolic pressure is normal at < 35 mmHg. There is no pulmonic regurgitation present. The aortic root size is normal. Normal inferior vena cava with normal inspiratory collapse consistent with estimated right atrial pre ssure of 5 mmHg. There is no pericardial effusion. CONCLUSIONS -------- 1. The left ventricular size is normal. 2. Left ventricular wall thickness is normal. 3. Overall left ventricular systolic function is normal with, an EF between 55 - 60 %. 4. The diastolic filling pattern is normal for the age of the patient {E/E'} 5. Trace amount of aortic regurgitation. 6. There is trace mitral regurgitation. 7. Trace tricuspid regurgitation present. 8. There is no pericardial effusion. LEGAL RESEARCHER: Amaris Chavira RDCS
[2021-11-07 11:21] LABS: Glucose,Whole Blood 115 mg/dL (75-99)
[2021-11-07] MEDS ORDERED: HYDROcodone/APAP 7.5-325MG 1 EACH TAB PO PRN (12:11)
--- NOTE | 2021-11-07 12:52 | P.PN ---
Subjective Progress Note Date: 11/07/21 HISTORY OF PRESENT ILLNESS: This is a 61-year-old male with a past medical history significant for diabetes, hyperlipidemia, and hypertension. Patient does not follow with a management accounts manager. We have been asked to see the patient in consultation for chest pain. Patient examined at the bedside. Patient is admitted to the hospital secondary to abdominal pain. Patient is being treated for diverticulitis. General surgery is following. The patient states yesterday he was having a lot of abdominal pain and then he felt like the pain went up into his chest. He states it felt like a brick was sitting on his chest. He states the chest pain and then went away and he began having more abdominal pain again. He reports having a a lot of gas and discomfort yesterday. The patient appears to be visibly uncomfortable and complains of significant abdominal pain this morning. EKG reveals sinus mechanism with no signs of acute ischemia CT abdomen and pelvis: Evidence for minimal sigmoid diverticulitis. There is moderate sigmoid diverticulosis. Laboratory data: WBC 10.3. Hemoglobin 13.8. Platelet count 316. Sodium 135. Potassium 4.1. BUN 20. Creatinine 1.73. Repeat 1.45. Magnesium 1.7. Troponin negative 2. Current home cardiac medications include Lipitor 20 mg at night, lisinopril 40 mg daily, Norvasc 10 mg daily, and chlorthalidone 25 mg daily 11/07/2021 Patient examined this morning at the bedside. Patient denies chest pain or pressure. He continues to report abdominal pain. Patient's vital signs are stable. Echocardiogram completed revealing ejection fraction 55-60%, trace aortic regurgitation, trace mitral regurgitation, and trace tricuspid regurgitation PHYSICAL EXAM: VITAL SIGNS: Reviewed. GENERAL: Well-developed who appears to be in pain and uncomfortable at the time of examination HEENT: Head is normocephalic. Pupils are equal, round. Sclerae anicteric. Mucous membranes of the mouth are moist. Neck supple. No JVD or thyromegaly LUNGS: Respirations even and unlabored. Lungs essentially clear to auscultation bilaterally. HEART: Regular rate and rhythm. S1 and S2 heard. ABDOMEN: Firm. Distended. Tenderness with minimal palpation. EXTREMITIES: Normal range of motion. No clubbing or cyanosis. Peripheral pulses intact. No lower extremity edema NEUROLOGIC: Awake and alert. Oriented x 3. ASSESSMENT: Chest pain, atypical, may be secondary to severe abdominal pain, troponin negative x 2 Abdominal pain Diverticulitis Hypertension Hyperlipidemia Diabetes PLAN: Continue current cardiac medications No further inpatient recommendations from a cardiac standpoint Patient to follow up on an outpatient basis with Dr. Bates for outpatient stress testing We will sign off. Please reconsult if needed. Nurse practitioner note has been reviewed by physician. Signing provider agrees with the documented findings, assessment, and plan of care. Objective - Vital Signs Vital signs: Vital Signs Temp 97.4 F L 11/07/21 08:00 Pulse 71 11/07/21 08:00 Resp 19 11/07/21 08:00 BP 124/84 11/07/21 08:00 Pulse Ox 99 11/07/21 08:00 Intake & Output 11/06/21 11/07/21 11/07/21 18:59 06:59 18:59 Intake Total 700 Output Total 1 Balance 700 -1 Intake: Intake, IV Titration 700 Amount Sodium Chloride 0.9% 1, 700 000 ml @ 75 mls/hr IV . [id number] [facility] Rx#:[id number] Output: Urine 1 Other: # Voids 3 # Bowel Movements 0 - Labs CBC & Chem 7: 11/06/21 04:20 11/07/21 08:59 Labs: Abnormal Lab Results - Last 24 Hours (Table) 11/06/21 11/06/21 11/07/21 Range/Units 04:20 20:47 08:59 Hgb 11.3 L (13.0-17.0) g/dL Hct 35.3 L (39.6-50.0) % MCV 76.2 L (80.0-97.0) fL MCH 24.4 L (27.0-32.0) pg RDW 14.6 H (11.5-14.5) % MPV 9.3 L (9.5-12.2) fL Sodium 133 L (137-145) mmol/L Creatinine 1.63 H (0.66-1.25) mg/dL Glucose 189 H (74-99) mg/dL POC Glucose (mg/dL) 126 H (75-99) mg/dL 11/07/21 Range/Units 11:18 Hgb (13.0-17.0) g/dL Hct (39.6-50.0) % MCV (80.0-97.0) fL MCH (27.0-32.0) pg RDW (11.5-14.5) % MPV (9.5-12.2) fL Sodium (137-145) mmol/L Creatinine (0.66-1.25) mg/dL Glucose (74-99) mg/dL POC Glucose (mg/dL) 115 H (75-99) mg/dL Microbiology - Last 24 Hours (Table) 11/04/21 20:30 Blood Culture - Preliminary Blood No Growth after 48 hours 11/04/21 20:45 Blood Culture - Preliminary Blood No Growth after 48 hours
[2021-11-07] MEDS ORDERED: LACTULOSE 20 GM/30 ML CUP PO ONE (13:32)
[2021-11-07 14:05] VITALS: BMI 30.9
[2021-11-07] MEDS ORDERED: ALPRAZolam 0.25 MG TAB PO PRN (15:44)
--- NOTE | 2021-11-07 15:50 | P.PN ---
Subjective Progress Note Date: 11/07/21 This is a pleasant 61 years old male with past medical history of diabetes mellitus, hypertension, hyperlipidemia Patient presents because of left lower quadrant abdominal pain or 10 months duration, also patient has been complaining from suprapubic pain for 2 years on and off, Patient wasn't very clear about the duration of his symptoms. However looks like his been having left lower quadrant worsening abdominal pain associated with some but less per day for more than a week. Associated with gastric feeling and vomiting for 5 days, and could not be very specific about when he times a day he vomits. He denies chest pain or dyspnea or coughing. No headache or weakness or numbness. No dysuria or urgency. He denies smoking, alcohol or illicit drugs. Vital showing mild tachycardia at 202. Blood pressure is borderline. CBC is unremarkable. Creatinine is elevated 1.7, unknown baseline. Give her enzymes not significantly elevated. Urinalysis is negative for infection. Stahl virus is not detected. CT of the abdomen and pelvis showing some minimal sigmoid diverticulitis. Moderate sigmoid diverticulosis. Patient received to the emergency room morphine, normal saline and started on Zosyn. Bladder scan documented as 101-150 11/06/2021 Patient is seen in follow up this morning and continues to have abdominal pain in the lower left and right quadrant in the suprapubic area with extreme tenderness on palpation. General surgery Dr. Lacey and urology has evaluated the patient and recommending continuing with conservative management and started on Flomax. Diet being advanced and patient maintained on IV antibiotics. Patient also reports to some chest pain, epigastric and cardiology consulted. Troponins have been negative. 2d echo ordered and pending. 11/07/2021 Patient is seen in follow up again this morning and having gas but denies bowel movement and reports to eating and tolerating with no reports of nausea or vomiting noted. Patient is maintained on IV antibiotics with general surgery following an diet has been advanced. Patient will likely need outpatient follow-up for colonoscopy in 6 weeks. Kidney functions worsening and creatinine is elevated and will consult nephrology and also continue with oral medications for pain control discontinue IV. Medications. Patient needs strong encouragement to get up out of the bed and increase activity and had a lengthy discussion again with him about getting out of bed today. Will continue gentle IV hydration and repeat labs and await nephrology consult. Labs: sodium is 133, potassium is 3.9, BUN is 15, creatinine is 1.63, calcium is 9.1 Review of systems: Constitutional: reports of fatigue and lack of sleep, denies fever or chills Cardio: reports chest pain, denies palpitations Resp: no reports of shortness of breath or cough GI: reports abdominal pain and discomfort : reports suprapubic pain and difficulty with retaining, but is urinating Neuro: no reports of numbness, reports generalized weakness and feeling of lightheadedness while getting up Active Medications Hydrocodone Bitart/Acetaminophen (Hydrocodone/Apap 7.5-325mg 1 Each Tab) 1 each PO Q6HR PRN PRN Reason: Pain Famotidine (Famotidine 20 Mg/2 Ml Vial) 20 mg IV DAILY [facility] Last Admin: 11/07/21 08:06 Dose: 20 mg Documented by: Heparin Sodium (Porcine) (Heparin Sodium,Porcine/Pf 5,000 Unit/0.5 Ml Syringe) 5,000 unit SQ Q12HR [facility] Last Admin: 11/07/21 08:06 Dose: 5,000 unit Documented by: Piperacillin Sod/Tazobactam (Sod 3.375 gm/ Sodium Chloride) 100 mls @ 25 mls/hr IVPB Q8H [facility] Last Admin: 11/07/21 13:24 Dose: 25 mls/hr Documented by: Sodium Chloride (Saline 0.9%) 1,000 mls @ 75 mls/hr IV .[id number] [facility] Last Admin: 11/07/21 01:34 Dose: 75 mls/hr Documented by: Insulin Aspart (Insulin Aspart (Novolog) 100 Unit/Ml Vial) 0 unit SQ ACHS [facility]; Protocol Last Admin: 11/07/21 12:01 Dose: Not Given Documented by: Lorazepam (Lorazepam 2 Mg/Ml Inj) 1 mg IV Q6HR PRN PRN Reason: Anxiety Last Admin: 11/06/21 21:24 Dose: 1 mg Documented by: Naloxone HCl (Naloxone 0.4 Mg/Ml 1 Ml Vial) 0.2 mg IV Q2M PRN PRN Reason: Opioid Reversal Ondansetron HCl (Ondansetron 4 Mg/2 Ml Vial) 4 mg IVP Q8HR PRN PRN Reason: Nausea And Vomiting Senna (Sennosides 8.6 Mg Tab) 8.6 mg PO BID [facility] Last Admin: 11/07/21 08:06 Dose: 8.6 mg Documented by: Tamsulosin HCl (Tamsulosin 0.4 Mg Cap.Er.24h) 0.4 mg PO PC-SUPPER [facility] Last Admin: 11/06/21 17:40 Dose: 0.4 mg Documented by: Physical Exam: GENERAL: The patient is alert and oriented x3, not in any acute distress. Well developed, well nourished. HEENT: Pupils are round and equally reacting to light. EOMI. No scleral icterus. No conjunctival pallor. Normocephalic, atraumatic. No pharyngeal erythema. No thyromegaly. CARDIOVASCULAR: S1 and S2 present. No murmurs, rubs, or gallops. PULMONARY: Chest is clear to auscultation, no wheezing or crackles. ABDOMEN: Soft, left lower and right quadrant tenderness, mostly suprapubic, no rebound tenderness, normoactive bowel sounds. No palpable organomegaly. MUSCULOSKELETAL: No joint swelling or deformity. EXTREMITIES: No cyanosis, clubbing, or pedal edema. NEUROLOGICAL: Gross neurological examination did not reveal any focal deficits. SKIN: No rashes. no petechiae. Assessment: Acute diverticulitis Possible Acute urinary retention acute kidney injury, most likely prerenal secondary to dehydration chest pain, ruled out acs Hypertension Hyperlipidemia Diabetes mellitus chronic constipation Obesity with BMI of 31 GI prophylaxis DVT porphylaxis Full code Plan: This is a pleasant 61 years old male who presents with acute diverticulitis and maintained on IV antibiotics with general surgery and urology following. Cardiology consulted and 2D echo ordered and showing overall LV systolic function is normal with an EF of 55-60% with a trace of mitral and tricuspid regurgitation present with a trace amount of aortic regurgitation. Troponins are negative. Diet being advanced per surgery Dr. Lacey and recommending conservative management with outpatient colonoscopy. Creatinine elevated and will continue IV normal saline and repeat am labs. Nephrology consulted and pending at this time for elevated creatinine. Encouraged oral intake and increased activity as tolerated. Encouraged the patient to get out of bed. Urology recommending to continue with flomax and outpatient follow up. Will repeat am labs and possible discharge in 24 hours. Objective - Vital Signs Vital signs: Vital Signs Temp 97.4 F L 11/07/21 08:00 Pulse 71 11/07/21 08:00 Resp 19 11/07/21 08:00 BP 124/84 11/07/21 08:00 Pulse Ox 99 11/07/21 08:00 Intake & Output 11/06/21 11/07/21 11/07/21 18:59 06:59 18:59 Intake Total 700 Output Total 1 Balance 700 -1 Intake: Intake, IV Titration 700 Amount Sodium Chloride 0.9% 1, 700 000 ml @ 75 mls/hr IV . [id number] [facility] Rx#:[id number] Output: Urine 1 Other: # Voids 3 # Bowel Movements 0 - Labs CBC & Chem 7: 11/06/21 04:20 11/07/21 08:59 Labs: Abnormal Lab Results - Last 24 Hours (Table) 11/06/21 11/06/21 11/06/21 Range/Units 04:20 04:20 10:19 Hgb 11.3 L (13.0-17.0) g/dL Hct 35.3 L (39.6-50.0) % MCV 76.2 L (80.0-97.0) fL MCH 24.4 L (27.0-32.0) pg RDW 14.6 H (11.5-14.5) % MPV 9.3 L (9.5-12.2) fL Sodium 135 L (137-145) mmol/L Creatinine 1.57 H (0.66-1.25) mg/dL Glucose 118 H (74-99) mg/dL POC Glucose (mg/dL) (75-99) mg/dL Hemoglobin A1c 9.0 H (0.0-6.0) % 11/06/21 11/06/21 Range/Units 11:57 20:47 Hgb (13.0-17.0) g/dL Hct (39.6-50.0) % MCV (80.0-97.0) fL MCH (27.0-32.0) pg RDW (11.5-14.5) % MPV (9.5-12.2) fL Sodium (137-145) mmol/L Creatinine (0.66-1.25) mg/dL Glucose (74-99) mg/dL POC Glucose (mg/dL) 106 H 126 H (75-99) mg/dL Hemoglobin A1c (0.0-6.0) % Microbiology - Last 24 Hours (Table) 11/04/21 20:30 Blood Culture - Preliminary Blood No Growth after 48 hours 11/04/21 20:45 Blood Culture - Preliminary Blood No Growth after 48 hours
[2021-11-07 17:06] LABS: Glucose,Whole Blood 116 mg/dL (75-99)
[2021-11-07 20:50] LABS: Glucose,Whole Blood 130 mg/dL (75-99)
[2021-11-07] MEDS: TAMSULOSIN 0.4 MG CAP.ER.24H PO SCH (22:47)
[2021-11-08] MEDS: PIPERACILLIN-TAZOBACTAM 3.375 GM in SODIUM CHLORIDE 0.9% 100 ML IVPB SCH ×3 (04:54→20:55)
[2021-11-08] MEDS: SODIUM CHLORIDE 0.9% 1,000 ML IV SCH ×2 (04:55→19:26)
[2021-11-08 07:24] LABS: Glucose,Whole Blood 124 mg/dL (75-99)
[2021-11-08] MEDS: INSULIN ASPART (NovoLOG) 100 UNIT/ML VIAL SQ SCH ×4 (08:06→20:35)
[2021-11-08] MEDS: FAMOTIDINE 20 MG/2 ML VIAL IV SCH (10:08)
[2021-11-08] MEDS: HEPARIN SODIUM,PORCINE/PF 5,000 UNIT/0.5 ML SYRINGE SQ SCH ×2 (10:09→20:54)
[2021-11-08] MEDS: SENNOSIDES 8.6 MG TAB PO SCH ×2 (10:09→20:54)
[2021-11-08 11:29] LABS: African American GFR (CKD) 45 (>60 ml/min/1.73 sqM); Anion Gap 10 mmol/L; Blood Urea Nitrogen 13 mg/dL (9-20); Calcium 9.4 mg/dL (8.4-10.2); Carbon Dioxide 22 mmol/L (22-30); Chloride 105 mmol/L (98-107); Glucose 138 mg/dL (74-99); Non-African American GFR(CKD) 39 (>60 ml/min/1.73 sqM); Potassium 3.9 mmol/L (3.5-5.1); Sodium 137 mmol/L (137-145)
[2021-11-08 11:46] LABS: Glucose,Whole Blood 108 mg/dL (75-99)
--- NOTE | 2021-11-08 12:04 | P.NPCON ---
History of Present Illness - Reason for Consult acute renal failure - History of Present Illness Patient is a 61-year-old male with history of type 2 diabetes hypertension and hyperlipidemia. He was admitted to the hospital with complaints of abdominal pain which has been on and off for about 2 years but recently got worse. CT of the abdomen showed mild evidence of diverticulitis. Currently patient is maintained on IV fluids and IV antibiotics. patient stated that his pain has shifted towards the left flank area. No previous history of kidney stones. CAT scan of the abdomen did not reveal any obvious nephrolithiasis. Patient was evaluated by urology due to previous history of "urology issues"mom possible prostatitis and UTI previously. Serum creatinine was 1.7 on initial admission and decreased to 1.45 the next day. To date is at 1.84. No previous labs aren't available for comparison. Patient denies use of any nonsteroidal anti-inflammatory agents. Blood pressure is noted to be low with systolic around 92 on 11/05/2021. Patient has not received any IV contrast. He is maintained on IV fluids. Patient was on SATNIAGO inhibitor's which are currently on hold No trouble voiding. Review of Systems As per HPI, other systems negative Past Medical History Past Medical History: Diabetes Mellitus, Hypertension, Prostate Disorder History of Any Multi-Drug Resistant Organisms: None Reported Past Surgical History: Appendectomy Past Psychological History: No Psychological Hx Reported Smoking Status: Never smoker Past Alcohol Use History: None Reported Past Drug Use History: None Reported Medications and Allergies Home Medications Medication Instructions Recorded Confirmed Type Atorvastatin [Lipitor] 20 mg PO HS 11/04/21 11/04/21 History Chlorthalidone [Hygroten] 25 mg PO DAILY 11/04/21 11/04/21 History Insuln Asp Prt/Insulin Aspart 30 unit SQ HS 11/04/21 11/04/21 History [NovoLOG MIX 70-30 VIAL] Insuln Asp Prt/Insulin Aspart 70 unit SQ DAILY 11/04/21 11/04/21 History [NovoLOG MIX 70-30 VIAL] amLODIPine [Norvasc] 10 mg PO DAILY 11/04/21 11/04/21 History lisinopriL 40 mg PO DAILY 11/04/21 11/04/21 History Allergies Allergy/AdvReac Type Severity Reaction Status Date / Time No Known Allergies Allergy Verified 11/04/21 19:04 Physical Exam Vitals: Vital Signs Temp Pulse Resp BP Pulse Ox 11/08/21 08:00 97.4 F L 76 18 106/71 97 11/08/21 01:36 97.7 F 71 17 132/91 96 11/07/21 19:16 98.3 F 77 17 110/68 97 11/07/21 14:00 97.5 F L 80 21 113/70 98 Intake and Output 11/07/21 11/08/21 11/08/21 22:59 06:59 14:59 Intake Total 1100 Balance 1100 Intake: Intake, IV Titration 550 Amount Piperacillin-Tazobactam 3 100 .375 gm In Sodium Chloride 0.9% 100 ml @ 25 mls/hr IVPB Q8H [facility] Rx#: [id number] Sodium Chloride 0.9% 1, 450 000 ml @ 75 mls/hr IV . [id number] [facility] Rx#:[id number] Oral 550 Other: # Voids 4 4 # Bowel Movements 0 Patient is awake, he is complaining of pain in his lower abdomen and left flank area. Alert and oriented 3 Examination of the heart S1 and S2 Examination lungs bilateral breath sounds are heard Abdomen is soft, mild tenderness in the lower abdomen Examination lower extremities shows no evidence of edema COPY HOLDER exam grossly intact No CVA tenderness noted Results - Lab Results Most recent lab results Calcium 9.4 mg/dL (8.4-10.2) 11/08/21 10:19 Magnesium 1.7 mg/dL (1.6-2.3) 11/05/21 23:26 11/06/21 04:20 11/08/21 10:19 Assessment and Plan Assessment: 1. Acute kidney injury mostly ATN, secondary to hypoperfusion in the setting of use of SANTIAGO inhibitor's. Currently maintained on IV fluids and off of lisinopril. No evidence of obstruction on the CAT scan. 2. Acute diverticulitis, maintained on antibiotics 3. History of hypertension, blood pressure currently on the lower side. Plan: Continue with IV fluids. Check bladder scan and rule out urine retention. Repeat labs in a.m.
--- NOTE | 2021-11-08 14:57 | P.PN ---
Subjective Progress Note Date: 11/08/21 This is a pleasant 61 years old male with past medical history of diabetes mellitus, hypertension, hyperlipidemia Patient presents because of left lower quadrant abdominal pain or 10 months duration, also patient has been complaining from suprapubic pain for 2 years on and off, Patient wasn't very clear about the duration of his symptoms. However looks like his been having left lower quadrant worsening abdominal pain associated with some but less per day for more than a week. Associated with gastric feeling and vomiting for 5 days, and could not be very specific about when he times a day he vomits. He denies chest pain or dyspnea or coughing. No headache or weakness or numbness. No dysuria or urgency. He denies smoking, alcohol or illicit drugs. Vital showing mild tachycardia at 202. Blood pressure is borderline. CBC is unremarkable. Creatinine is elevated 1.7, unknown baseline. Give her enzymes not significantly elevated. Urinalysis is negative for infection. Stahl virus is not detected. CT of the abdomen and pelvis showing some minimal sigmoid diverticulitis. Moderate sigmoid diverticulosis. Patient received to the emergency room morphine, normal saline and started on Zosyn. Bladder scan documented as 101-150 11/06/2021 Patient is seen in follow up this morning and continues to have abdominal pain in the lower left and right quadrant in the suprapubic area with extreme tenderness on palpation. General surgery Dr. Lacey and urology has evaluated the patient and recommending continuing with conservative management and started on Flomax. Diet being advanced and patient maintained on IV antibiotics. Patient also reports to some chest pain, epigastric and cardiology consulted. Troponins have been negative. 2d echo ordered and pending. 11/07/2021 Patient is seen in follow up again this morning and having gas but denies bowel movement and reports to eating and tolerating with no reports of nausea or vomiting noted. Patient is maintained on IV antibiotics with general surgery following an diet has been advanced. Patient will likely need outpatient follow-up for colonoscopy in 6 weeks. Kidney functions worsening and creatinine is elevated and will consult nephrology and also continue with oral medications for pain control discontinue IV. Medications. Patient needs strong encouragement to get up out of the bed and increase activity and had a lengthy discussion again with him about getting out of bed today. Will continue gentle IV hydration and repeat labs and await nephrology consult. 11/08/2021 Patient is seen this morning and continues with lower abdominal suprapubic pain although states is traveling up to his flank area. Patient states he is voiding although there is a delay in his leg but denies any burning or pain with urination. She reports a small bowel movement yesterday and continues with passing gas. Patient is tolerating diet and denies any nausea or vomiting. Patient states he is in severe 10 out of 10 pain and is maintained on [place]. Patient has also not been getting up out of the bed and mostly lying in bed all day as he states his pain is to unbearable to tolerate getting up. Kidney functions steady worsening most likely prerenal and nephrology consulted and ultrasound was ordered of the kidneys given his flank pain although no CVA tenderness noted on exam. Patient is maintained on IV hydration and will cont inue and blood pressure medication has been on hold. Encouraged increased activity and continued oral intake. Labs: Sodium is 137, potassium is 3.9, BUN is 13, creatinine is 1.84, calcium is 9.4 Review of systems: Constitutional: reports of fatigue and lack of sleep, denies fever or chills Cardio: reports chest pain, denies palpitations Resp: no reports of shortness of breath or cough GI: reports abdominal pain and discomfort, reports flank pain that started this morning : reports suprapubic pain and difficulty with retaining, but is urinating Neuro: no reports of numbness, reports generalized weakness and feeling of lightheadedness while getting up Active Medications Hydrocodone Bitart/Acetaminophen (Hydrocodone/Apap 7.5-325mg 1 Each Tab) 1 each PO Q6HR PRN PRN Reason: Pain Last Admin: 11/08/21 08:59 Dose: 1 each Documented by: Alprazolam (Alprazolam 0.25 Mg Tab) 0.25 mg PO BID PRN PRN Reason: Anxiety Last Admin: 11/08/21 10:24 Dose: 0.25 mg Documented by: Famotidine (Famotidine 20 Mg/2 Ml Vial) 20 mg IV DAILY [facility] Last Admin: 11/08/21 10:08 Dose: 20 mg Documented by: Heparin Sodium (Porcine) (Heparin Sodium,Porcine/Pf 5,000 Unit/0.5 Ml Syringe) 5,000 unit SQ Q12HR [facility] Last Admin: 11/08/21 10:09 Dose: 5,000 unit Documented by: Piperacillin Sod/Tazobactam (Sod 3.375 gm/ Sodium Chloride) 100 mls @ 25 mls/hr IVPB Q8H [facility] Last Admin: 11/08/21 04:54 Dose: 25 mls/hr Documented by: Sodium Chloride (Saline 0.9%) 1,000 mls @ 75 mls/hr IV .[id number] [facility] Last Admin: 11/08/21 04:55 Dose: 75 mls/hr Documented by: Insulin Aspart (Insulin Aspart (Novolog) 100 Unit/Ml Vial) 0 unit SQ ACHS [facility]; Protocol Last Admin: 11/08/21 13:18 Dose: Not Given Documented by: Naloxone HCl (Naloxone 0.4 Mg/Ml 1 Ml Vial) 0.2 mg IV Q2M PRN PRN Reason: Opioid Reversal Ondansetron HCl (Ondansetron 4 Mg/2 Ml Vial) 4 mg IVP Q8HR PRN PRN Reason: Nausea And Vomiting Senna (Sennosides 8.6 Mg Tab) 8.6 mg PO BID [facility] Last Admin: 11/08/21 10:09 Dose: 8.6 mg Documented by: Tamsulosin HCl (Tamsulosin 0.4 Mg Cap.Er.24h) 0.4 mg PO PC-SUPPER [facility] Last Admin: 11/07/21 22:47 Dose: 0.4 mg Documented by: Physical Exam: GENERAL: The patient is alert and oriented x3, not in any acute distress. Well developed, well nourished. HEENT: Pupils are round and equally reacting to light. EOMI. No scleral icterus. No conjunctival pallor. Normocephalic, atraumatic. No pharyngeal erythema. No thyromegaly. CARDIOVASCULAR: S1 and S2 present. No murmurs, rubs, or gallops. PULMONARY: Chest is clear to auscultation, no wheezing or crackles. ABDOMEN: Soft, left lower and right quadrant tenderness, mostly suprapubic, no rebound tenderness, normoactive bowel sounds. No palpable organomegaly. No CVA tenderness noted on exam MUSCULOSKELETAL: No joint swelling or deformity. EXTREMITIES: No cyanosis, clubbing, or pedal edema. NEUROLOGICAL: Gross neurological examination did not reveal any focal deficits. SKIN: No rashes. no petechiae. Assessment: Acute diverticulitis Right flank pain, ultrasound ordered and pending at this time Possible Acute urinary retention, continue on Flomax acute kidney injury, most likely prerenal secondary to dehydration and lisinopril use which is currently on hold chest pain, ruled out acs Hypertension, currently blood pressures are soft and on the lower side, blood pressure medication on hold Hyperlipidemia Diabetes mellitus chronic constipation Obesity with BMI of 31 GI prophylaxis DVT porphylaxis Full code Plan: This is a pleasant 61 years old male who presents with acute diverticulitis and maintained on IV antibiotics with general surgery and urology following. Cardiology consulted and 2D echo ordered and showing overall LV systolic function is normal with an EF of 55-60% with a trace of mitral and tricuspid regurgitation present with a trace amount of aortic regurgitation. Troponins are negative. Cardiology signed off at this time. Diet being tolerated per surgery Dr. Lacey and recommending conservative management with outpatient colonoscopy. Creatinine elevated and will continue IV normal saline and repeat am labs. Nephrology following. Encouraged oral intake and increased activity as tolerated. Encouraged the patient to get out of bed. Urology recommending to continue with flomax and outpatient follow up. Will repeat am labs and continue to monitor closely. Ultrasound of the kidneys were ordered as patient was having flank pain which is currently pending. Monitor bladder scan as needed for retention. Objective - Vital Signs Vital signs: Vital Signs Temp 97.7 F 11/08/21 01:36 Pulse 71 11/08/21 01:36 Resp 17 11/08/21 01:36 BP 132/91 11/08/21 01:36 Pulse Ox 96 11/08/21 01:36 Intake & Output 11/07/21 11/08/21 11/08/21 18:59 06:59 18:59 Intake Total 1100 Balance 1100 Weight 87.09 kg Intake: Intake, IV Titration 550 Amount Piperacillin-Tazobactam 3 100 .375 gm In Sodium Chloride 0.9% 100 ml @ 25 mls/hr IVPB Q8H [facility] Rx#: [id number] Sodium Chloride 0.9% 1, 450 000 ml @ 75 mls/hr IV . [id number] [facility] Rx#:[id number] Oral 550 Other: # Voids 4 4 # Bowel Movements 0 - Labs CBC & Chem 7: 11/06/21 04:20 11/08/21 10:19 Labs: Abnormal Lab Results - Last 24 Hours (Table) 11/07/21 11/07/21 11/07/21 Range/Units 08:59 11:18 16:49 Sodium 133 L (137-145) mmol/L Creatinine 1.63 H (0.66-1.25) mg/dL Glucose 189 H (74-99) mg/dL POC Glucose (mg/dL) 115 H 116 H (75-99) mg/dL 11/07/21 11/08/21 Range/Units 20:47 07:23 Sodium (137-145) mmol/L Creatinine (0.66-1.25) mg/dL Glucose (74-99) mg/dL POC Glucose (mg/dL) 130 H 124 H (75-99) mg/dL Microbiology - Last 24 Hours (Table) 11/04/21 20:30 Blood Culture - Preliminary Blood No Growth after 72 hours 11/04/21 20:45 Blood Culture - Preliminary Blood No Growth after 72 hours
--- NOTE | 2021-11-08 17:03 | US ---
EXAMINATION TYPE: US renals and bladder DATE OF EXAM: 11/08/2021 COMPARISON: CT from 4 days earlier CLINICAL HISTORY: right flank pain. right flank pain that extends over to the left side EXAM MEASUREMENTS: Right Kidney: 11.0 x 4.5 x 5.6 cm Left Kidney: 10.5 x 5.0 x 4.7 cm Right Kidney: No hydronephrosis or masses seen, unable to appreciate stone seen on CT Left Kidney: No hydronephrosis or masses seen Bladder: wnl Bilateral Jets seen: Yes Suboptimal study secondary to body habitus. No gross hydronephrosis. No concerning masses. Bladder ap pears within normal limits. Bilateral distal ureter jets are seen. Right-sided lower pole renal calcu nathen on CT not clearly seen on ultrasound. IMPRESSION: Suboptimal study. No hydronephrosis seen bilaterally. Distal right ureter jet is visualiz ed.
[2021-11-08 17:07] LABS: Glucose,Whole Blood 81 mg/dL (75-99)
[2021-11-08] MEDS: TAMSULOSIN 0.4 MG CAP.ER.24H PO SCH (17:22)
[2021-11-08 20:18] LABS: Glucose,Whole Blood 102 mg/dL (75-99)
[2021-11-09] MEDS: PIPERACILLIN-TAZOBACTAM 3.375 GM in SODIUM CHLORIDE 0.9% 100 ML IVPB SCH ×3 (04:53→20:33)
[2021-11-09 08:15] LABS: Glucose,Whole Blood 181 mg/dL (75-99)
[2021-11-09] MEDS: INSULIN ASPART (NovoLOG) 100 UNIT/ML VIAL SQ SCH ×4 (09:23→20:33)
[2021-11-09] MEDS: HEPARIN SODIUM,PORCINE/PF 5,000 UNIT/0.5 ML SYRINGE SQ SCH ×2 (09:24→20:33)
[2021-11-09] MEDS: FAMOTIDINE 20 MG/2 ML VIAL IV SCH (09:24)
[2021-11-09] MEDS: SENNOSIDES 8.6 MG TAB PO SCH ×2 (09:24→20:33)
[2021-11-09 09:30] LABS: African American GFR (CKD) 44 (>60 ml/min/1.73 sqM); Anion Gap 9 mmol/L; Blood Urea Nitrogen 14 mg/dL (9-20); Calcium 9.4 mg/dL (8.4-10.2); Carbon Dioxide 25 mmol/L (22-30); Chloride 104 mmol/L (98-107); Glucose 100 mg/dL (74-99); Non-African American GFR(CKD) 38 (>60 ml/min/1.73 sqM); Potassium 4.2 mmol/L (3.5-5.1); Sodium 138 mmol/L (137-145)
[2021-11-09 09:31] LABS: Basophils # (A) 0.02 X 10*3/uL (0.00-0.10); Basophils % (A) 0.2 %; Eosinophils # (A) 0.11 X 10*3/uL (0.04-0.35); Eosinophils % (A) 1.3 %; HGB 11.8 g/dL (13.0-17.0); Immature Grans, Automated 0.6 %; Lymphocytes # (A) 1.73 X 10*3/uL (0.90-5.00); Lymphocytes % (A) 20.2 %; MCH 24.6 pg (27.0-32.0); MCHC 31.9 g/dL (32.0-37.0); MCV 77.1 fL (80.0-97.0); Mean Platelet Volume 8.9 fL (9.5-12.2); Monocytes # (A) 0.43 X 10*3/uL (0.20-1.00); NRBC Per 100 WBC 0 /100 WBCS (0.0-0.0); Neutrophils # (A) 6.22 X 10*3/uL (1.80-7.70); Neutrophils % (A) 72.7 %; Platelet Count 259 X 10*3/uL (140-440); RDW 14.6 % (11.5-14.5); WBC 8.56 X 10*3/uL (4.50-10.00)
[2021-11-09 11:42] LABS: Glucose,Whole Blood 106 mg/dL (75-99)
[2021-11-09] MEDS: SODIUM CHLORIDE 0.9% 1,000 ML IV SCH ×2 (12:29→20:39)
--- NOTE | 2021-11-09 14:43 | P.PN ---
Subjective Progress Note Date: 11/09/21 Patient seen and examined at bedside. States abdominal pain is much improved today after having fulfilling bowel movement. Denies nausea or vomiting. Tolerating diet. Objective - Vital Signs Vital signs: Vital Signs Temp 97.5 F L 11/09/21 08:00 Pulse 87 11/09/21 08:00 Resp 18 11/09/21 08:00 BP 131/82 11/09/21 08:00 Pulse Ox 95 11/09/21 08:00 Intake & Output 11/08/21 11/09/21 11/09/21 18:59 06:59 18:59 Intake Total 1080 500 Output Total 208 Balance 1080 500 -208 Intake: Oral 1080 500 Output: Post Void Residual 208 Other: Voiding Method Toilet Toilet Urinal # Voids 3 4 - Constitutional General appearance: Present: cooperative, no acute distress - EENT Ears: right: obstructed by cerumen - Gastrointestinal General gastrointestinal: Present: soft. Absent: tenderness - Labs CBC & Chem 7: 11/09/21 04:51 11/09/21 04:51 Labs: Abnormal Lab Results - Last 24 Hours (Table) 11/08/21 11/09/21 11/09/21 Range/Units 20:16 04:51 04:51 Hgb 11.8 L (13.0-17.0) g/dL Hct 37.0 L (39.6-50.0) % MCV 77.1 L (80.0-97.0) fL MCH 24.6 L (27.0-32.0) pg MCHC 31.9 L (32.0-37.0) g/dL RDW 14.6 H (11.5-14.5) % MPV 8.9 L (9.5-12.2) fL Immature Gran # 0.05 H (0.00-0.04) X 10*3/uL Creatinine 1.87 H (0.66-1.25) mg/dL Glucose 100 H (74-99) mg/dL POC Glucose (mg/dL) 102 H (75-99) mg/dL 11/09/21 11/09/21 Range/Units 08:14 11:40 Hgb (13.0-17.0) g/dL Hct (39.6-50.0) % MCV (80.0-97.0) fL MCH (27.0-32.0) pg MCHC (32.0-37.0) g/dL RDW (11.5-14.5) % MPV (9.5-12.2) fL Immature Gran # (0.00-0.04) X 10*3/uL Creatinine (0.66-1.25) mg/dL Glucose (74-99) mg/dL POC Glucose (mg/dL) 181 H 106 H (75-99) mg/dL Microbiology - Last 24 Hours (Table) 11/04/21 20:30 Blood Culture - Preliminary Blood No Growth after 96 hours 11/04/21 20:45 Blood Culture - Preliminary Blood No Growth after 96 hours Assessment and Plan Plan: 61-year-old male with diverticulitis and urinary retention. - Patient evaluated by urology for urinary retention - Continue with IV antibiotics for diverticulitis, Patient did have bowel movement - Continue with stool softeners - Advance diet as tolerated - surgically stable for discharge - Continue medical recommendations, no plan for surgical intervention at this time. I would recommend colonoscopy as an outpatient in 6-8 weeks
--- NOTE | 2021-11-09 16:18 | P.PN ---
Subjective Principal diagnosis: Patient is a 61-year-old male with history of type 2 diabetes hypertension and hyperlipidemia. He was admitted to the hospital with abdominal pain and found to have diverticulitis. Patient is currently maintained on IV fluids and IV antibiotics. CT of the abdomen does not show any evidence of hydronephrosis. Serum creatinine currently at about 1.8 mg/dL. No previous labs available for comparison. No urine retention noted. UA is completely benign Will pain is much improved today. Patient has started to increase his oral intake. Objective - Vital Signs Vital signs: Vital Signs Temp 97.5 F L 11/09/21 08:00 Pulse 87 11/09/21 08:00 Resp 18 11/09/21 08:00 BP 131/82 11/09/21 08:00 Pulse Ox 95 11/09/21 08:00 Intake & Output 11/08/21 11/09/21 11/09/21 18:59 06:59 18:59 Intake Total 1080 500 Output Total 208 Balance 1080 500 -208 Intake: Oral 1080 500 Output: Post Void Residual 208 Other: Voiding Method Toilet Toilet Urinal # Voids 3 4 - Exam Patient is comfortable awake. He is alert oriented 3. Examination of the lungs bilateral breath sounds are heard Examination lower extremities shows no evidence of edema and [employer] exam grossly intact - Labs CBC & Chem 7: 11/09/21 04:51 11/09/21 04:51 Labs: Abnormal Lab Results - Last 24 Hours (Table) 11/08/21 11/09/21 11/09/21 Range/Units 20:16 04:51 04:51 Hgb 11.8 L (13.0-17.0) g/dL Hct 37.0 L (39.6-50.0) % MCV 77.1 L (80.0-97.0) fL MCH 24.6 L (27.0-32.0) pg MCHC 31.9 L (32.0-37.0) g/dL RDW 14.6 H (11.5-14.5) % MPV 8.9 L (9.5-12.2) fL Immature Gran # 0.05 H (0.00-0.04) X 10*3/uL Creatinine 1.87 H (0.66-1.25) mg/dL Glucose 100 H (74-99) mg/dL POC Glucose (mg/dL) 102 H (75-99) mg/dL 11/09/21 11/09/21 Range/Units 08:14 11:40 Hgb (13.0-17.0) g/dL Hct (39.6-50.0) % MCV (80.0-97.0) fL MCH (27.0-32.0) pg MCHC (32.0-37.0) g/dL RDW (11.5-14.5) % MPV (9.5-12.2) fL Immature Gran # (0.00-0.04) X 10*3/uL Creatinine (0.66-1.25) mg/dL Glucose (74-99) mg/dL POC Glucose (mg/dL) 181 H 106 H (75-99) mg/dL Microbiology - Last 24 Hours (Table) 11/04/21 20:30 Blood Culture - Preliminary Blood No Growth after 96 hours 11/04/21 20:45 Blood Culture - Preliminary Blood No Growth after 96 hours Assessment and Plan Assessment: 1. Acute kidney injury mostly ATN, secondary to hypoperfusion in the setting of use of SANTIAGO inhibitor's. Currently maintained on IV fluids and off of lisinopril. No evidence of obstruction on the CAT scan. UA is completely benign 2. Acute diverticulitis, maintained on antibiotics 3. History of hypertension, blood pressure currently on the lower side. Plan: Continue with IV fluids. Repeat labs in a.m. OK to discharge patient home tomorrow and follow-up as outpatient in about 1-2 weeks. Patient is advised to avoid any nonsteroidal anti-inflammatory agents.
[2021-11-09 16:55] LABS: Glucose,Whole Blood 95 mg/dL (75-99)
[2021-11-09] MEDS: TAMSULOSIN 0.4 MG CAP.ER.24H PO SCH (17:48)
[2021-11-09 20:14] LABS: Glucose,Whole Blood 140 mg/dL (75-99)
--- NOTE | 2021-11-10 00:33 | P.PN ---
Subjective Progress Note Date: 11/09/21 This is a pleasant 61 years old male with past medical history of diabetes mellitus, hypertension, hyperlipidemia Patient presents because of left lower quadrant abdominal pain or 10 months duration, also patient has been complaining from suprapubic pain for 2 years on and off, Patient wasn't very clear about the duration of his symptoms. However looks like his been having left lower quadrant worsening abdominal pain associated with some but less per day for more than a week. Associated with gastric feeling and vomiting for 5 days, and could not be very specific about when he times a day he vomits. He denies chest pain or dyspnea or coughing. No headache or weakness or numbness. No dysuria or urgency. He denies smoking, alcohol or illicit drugs. Vital showing mild tachycardia at 202. Blood pressure is borderline. CBC is unremarkable. Creatinine is elevated 1.7, unknown baseline. Give her enzymes not significantly elevated. Urinalysis is negative for infection. Stahl virus is not detected. CT of the abdomen and pelvis showing some minimal sigmoid diverticulitis. Moderate sigmoid diverticulosis. Patient received to the emergency room morphine, normal saline and started on Zosyn. Bladder scan documented as 101-150 11/06/2021 Patient is seen in follow up this morning and continues to have abdominal pain in the lower left and right quadrant in the suprapubic area with extreme tenderness on palpation. General surgery Dr. Lacey and urology has evaluated the patient and recommending continuing with conservative management and started on Flomax. Diet being advanced and patient maintained on IV antibiotics. Patient also reports to some chest pain, epigastric and cardiology consulted. Troponins have been negative. 2d echo ordered and pending. 11/07/2021 Patient is seen in follow up again this morning and having gas but denies bowel movement and reports to eating and tolerating with no reports of nausea or vomiting noted. Patient is maintained on IV antibiotics with general surgery following an diet has been advanced. Patient will likely need outpatient follow-up for colonoscopy in 6 weeks. Kidney functions worsening and creatinine is elevated and will consult nephrology and also continue with oral medications for pain control discontinue IV. Medications. Patient needs strong encouragement to get up out of the bed and increase activity and had a lengthy discussion again with him about getting out of bed today. Will continue gentle IV hydration and repeat labs and await nephrology consult. 11/08/2021 Patient is seen this morning and continues with lower abdominal suprapubic pain although states is traveling up to his flank area. Patient states he is voiding although there is a delay in his leg but denies any burning or pain with urination. She reports a small bowel movement yesterday and continues with passing gas. Patient is tolerating diet and denies any nausea or vomiting. Patient states he is in severe 10 out of 10 pain and is maintained on Strang. Patient has also not been getting up out of the bed and mostly lying in bed all day as he states his pain is to unbearable to tolerate getting up. Kidney functions steady worsening most likely prerenal and nephrology consulted and ultrasound was ordered of the kidneys given his flank pain although no CVA tenderness noted on exam. Patient is maintained on IV hydration and will cont inue and blood pressure medication has been on hold. Encouraged increased activity and continued oral intake. 11/09/2021 Patient is seen and evaluated this morning and continues with abdominal disc omfort although reports to being somewhat improved as patient reports to large bowel movement. Patient is maintained on IV zosyn with general surgery and nephrology following closely. Recommend to continue holding Lisinopril. Patient is voiding and denies any pain with urination. Ultrasound of the kidneys was negative for hydronephrosis. Patient will need follow up with nephrology outpatient. Patient denies flank pain today. No reports of chest pain or shortness of breath. Continue IV fluids. Labs: Sodium is 137, potassium is 3.9, BUN is 13, creatinine is 1.84, calcium is 9.4 Review of systems: Constitutional: reports of fatigue and lack of sleep, denies fever or chills Cardio: reports chest pain, denies palpitations Resp: no reports of shortness of breath or cough GI: reports abdominal pain and discomfort, reports flank pain that started this morning : reports suprapubic pain and difficulty with retaining, but is urinating Neuro: no reports of numbness, reports generalized weakness and feeling of lightheadedness while getting up Active Medications Hydrocodone Bitart/Acetaminophen (Hydrocodone/Apap 7.5-325mg 1 Each Tab) 1 each PO Q6HR PRN PRN Reason: Pain Last Admin: 11/08/21 08:59 Dose: 1 each Documented by: Alprazolam (Alprazolam 0.25 Mg Tab) 0.25 mg PO BID PRN PRN Reason: Anxiety Last Admin: 11/08/21 10:24 Dose: 0.25 mg Documented by: Famotidine (Famotidine 20 Mg/2 Ml Vial) 20 mg IV DAILY [facility] Last Admin: 11/09/21 09:24 Dose: 20 mg Documented by: Heparin Sodium (Porcine) (Heparin Sodium,Porcine/Pf 5,000 Unit/0.5 Ml Syringe) 5,000 unit SQ Q12HR [facility] Last Admin: 11/09/21 09:24 Dose: 5,000 unit Documented by: Piperacillin Sod/Tazobactam (Sod 3.375 gm/ Sodium Chloride) 100 mls @ 25 mls/hr IVPB Q8H [facility] Last Admin: 11/09/21 12:30 Dose: 25 mls/hr Documented by: Sodium Chloride (Saline 0.9%) 1,000 mls @ 75 mls/hr IV .[id number] [facility] Last Admin: 11/09/21 12:29 Dose: 75 mls/hr Documented by: Insulin Aspart (Insulin Aspart (Novolog) 100 Unit/Ml Vial) 0 unit SQ ACHS [facility]; Protocol Last Admin: 11/09/21 11:43 Dose: Not Given Documented by: Naloxone HCl (Naloxone 0.4 Mg/Ml 1 Ml Vial) 0.2 mg IV Q2M PRN PRN Reason: Opioid Reversal Ondansetron HCl (Ondansetron 4 Mg/2 Ml Vial) 4 mg IVP Q8HR PRN PRN Reason: Nausea And Vomiting Senna (Sennosides 8.6 Mg Tab) 8.6 mg PO BID [facility] Last Admin: 11/09/21 09:24 Dose: 8.6 mg Documented by: Tamsulosin HCl (Tamsulosin 0.4 Mg Cap.Er.24h) 0.4 mg PO PC-SUPPER [facility] Last Admin: 11/08/21 17:22 Dose: 0.4 mg Documented by: Physical Exam: GENERAL: The patient is alert and oriented x3, Well developed, well nourished. Temp is 97.5, pulse is 66, resp are 18, blood pressure is 131/82, pulse ox is 95% room air HEENT: Pupils are round and equally reacting to light. EOMI. No scleral icterus. No conjunctival pallor. Normocephalic, atraumatic. No pharyngeal erythema. No thyromegaly. CARDIOVASCULAR: S1 and S2 muffled PULMONARY: Chest is clear to auscultation, no wheezing or crackles. ABDOMEN: Soft, left lower and right quadrant tenderness, mostly suprapubic, no r ebound tenderness, normoactive bowel sounds. No palpable organomegaly. No CVA tenderness noted on exam MUSCULOSKELETAL: No joint swelling or deformity. EXTREMITIES: No cyanosis, clubbing, or pedal edema. NEUROLOGICAL: Gross neurological examination did not reveal any focal deficits. SKIN: No rashes. no petechiae. Assessment: Acute diverticulitis Right flank pain, improved Possible Acute urinary retention, continue on Flomax acute kidney injury, most likely prerenal secondary to dehydration and lisinopril use which is currently on hold, ATN chest pain, ruled out acs Hypertension history , currently blood pressures are soft and on the lower side Hyperlipidemia Diabetes mellitus chronic constipation Obesity with BMI of 31 GI prophylaxis DVT porphylaxis Full code Plan: This is a pleasant 61 years old male who presents with acute diverticulitis and maintained on IV antibiotics with general surgery and urology following. Cardiology consulted and 2D echo ordered and showing overall LV systolic function is normal with an EF of 55-60% with a trace of mitral and tricuspid regurgitation present with a trace amount of aortic regurgitation. Troponins are negative. Cardiology signed off at this time. Diet being tolerated per surgery Dr. Lacey and recommending conservative management with outpatient colonoscopy in 6-8 weeks. Creatinine elevated and will continue IV normal saline and repeat am labs. Nephrology following. Encouraged oral intake and increased activity as tolerated. Encouraged the patient to get out of bed. Urology recommending to continue with flomax and outpatient follow up. Will repeat am labs and continue to monitor closely. Ultrasound of the kidneys showed no hydronephrosis. Patient reports to some improvement in abdominal pain as patient had a large bowel movement. Due to multiple medical issues, prognosis is guarded. Possible discharge in 24 hours. Objective - Vital Signs Vital signs: Vital Signs Temp 97.5 F L 11/09/21 08:00 Pulse 87 11/09/21 08:00 Resp 18 11/09/21 08:00 BP 131/82 11/09/21 08:00 Pulse Ox 95 11/09/21 08:00 Intake & Output 11/08/21 11/09/21 11/09/21 18:59 06:59 18:59 Intake Total 1080 500 Output Total 208 Balance 1080 500 -208 Intake: Oral 1080 500 Output: Post Void Residual 208 Other: Voiding Method Toilet Toilet Urinal # Voids 3 4 - Labs CBC & Chem 7: 11/09/21 04:51 11/09/21 04:51 Labs: Abnormal Lab Results - Last 24 Hours (Table) 11/08/21 11/08/21 11/08/21 Range/Units 10:19 11:44 20:16 Creatinine 1.84 H (0.66-1.25) mg/dL Glucose 138 H (74-99) mg/dL POC Glucose (mg/dL) 108 H 102 H (75-99) mg/dL 11/09/21 Range/Units 08:14 Creatinine (0.66-1.25) mg/dL Glucose (74-99) mg/dL POC Glucose (mg/dL) 181 H (75-99) mg/dL Microbiology - Last 24 Hours (Table) 11/04/21 20:30 Blood Culture - Preliminary Blood No Growth after 96 hours 11/04/21 20:45 Blood Culture - Preliminary Blood No Growth after 96 hours
[2021-11-10 03:10] VITALS: RESP 16
[2021-11-10] MEDS: PIPERACILLIN-TAZOBACTAM 3.375 GM in SODIUM CHLORIDE 0.9% 100 ML IVPB SCH (04:40)
[2021-11-10 05:36] LABS: African American GFR (CKD) 47 (>60 ml/min/1.73 sqM); Anion Gap 13 mmol/L; Blood Urea Nitrogen 13 mg/dL (9-20); Calcium 9.6 mg/dL (8.4-10.2); Carbon Dioxide 19 mmol/L (22-30); Chloride 106 mmol/L (98-107); Glucose 117 mg/dL (74-99); Non-African American GFR(CKD) 41 (>60 ml/min/1.73 sqM); Sodium 138 mmol/L (137-145)
[2021-11-10 07:00] LABS: Glucose,Whole Blood 99 mg/dL (75-99)
[2021-11-10] MEDS: INSULIN ASPART (NovoLOG) 100 UNIT/ML VIAL SQ SCH ×2 (07:38→11:51)
[2021-11-10 07:51] VITALS: BP 112/73; PULSE 83; TEMP 97.6
[2021-11-10] MEDS: HEPARIN SODIUM,PORCINE/PF 5,000 UNIT/0.5 ML SYRINGE SQ SCH (08:05)
[2021-11-10] MEDS: SENNOSIDES 8.6 MG TAB PO SCH (08:05)
--- NOTE | 2021-11-10 11:15 | P.PN ---
Subjective Principal diagnosis: Patient is a 61-year-old male with history of type 2 diabetes hypertension and hyperlipidemia. He was admitted to the hospital with abdominal pain and found to have diverticulitis. Patient is currently maintained on IV fluids and IV antibiotics. CT of the abdomen does not show any evidence of hydronephrosis. Serum creatinine currently at about 1.8 mg/dL. No previous labs available for comparison. No urine retention noted. UA is completely benign No complaints of abdominal pain. Patient has started to increase his oral intake. Wants to go home Objective - Vital Signs Vital signs: Vital Signs Temp 97.6 F 11/10/21 07:20 Pulse 83 11/10/21 07:20 Resp 16 11/10/21 07:20 BP 112/73 11/10/21 07:20 Pulse Ox 97 11/10/21 07:20 Intake & Output 11/09/21 11/10/21 11/10/21 18:59 06:59 18:59 Intake Total 1080 Output Total 208 Balance 872 Intake: Oral 1080 Output: Post Void Residual 208 Other: Voiding Method Toilet # Voids 3 3 # Bowel Movements 1 - Exam Patient is comfortable awake. He is alert oriented 3. Examination of the lungs bilateral breath sounds are heard Examination lower extremities shows no evidence of edema and [employer] exam grossly intact - Labs CBC & Chem 7: 11/09/21 04:51 11/10/21 04:51 Labs: Abnormal Lab Results - Last 24 Hours (Table) 11/09/21 11/09/21 11/10/21 Range/Units 11:40 20:12 04:51 Carbon Dioxide 19 L (22-30) mmol/L Creatinine 1.76 H (0.66-1.25) mg/dL Glucose 117 H (74-99) mg/dL POC Glucose (mg/dL) 106 H 140 H (75-99) mg/dL Microbiology - Last 24 Hours (Table) 11/04/21 20:30 Blood Culture - Preliminary Blood No Growth after 120 hours 11/04/21 20:45 Blood Culture - Preliminary Blood No Growth after 120 hours Assessment and Plan Assessment: 1. Acute kidney injury mostly ATN, secondary to hypoperfusion in the setting of use of SANTIAGO inhibitor's. Currently maintained on IV fluids and off of lisinopril. No evidence of obstruction on the CAT scan. UA is completely benign 2. Acute diverticulitis, maintained on antibiotics 3. History of hypertension, blood pressure currently on the lower side. Plan: Continue with IV fluids. Repeat labs in a.m. OK to discharge patient home and follow-up as outpatient in about 1-2 weeks. Patient is advised to avoid any nonsteroidal anti-inflammatory agents.
[2021-11-10 11:38] LABS: Glucose,Whole Blood 108 mg/dL (75-99)
--- NOTE | 2021-11-10 19:46 | DS ---
DISCHARGE SUMMARY FINAL DIAGNOSES: 1. Acute diverticulitis. 2. Acute urinary tract infection. 3. Acute kidney injury. 4. Hypertension. DISCHARGE DISPOSITION: The patient will be discharged in stable condition with guarded prognosis. HISTORY OF PRESENT ILLNESS: This 61-year-old gentleman had abdominal pain and acute diverticulitis. Patient was treated with IV antibiotics. Patient improved significantly. Dr. Lacey saw the patient. On exam, vitals are stable. CARDIOVASCULAR: S1, S2 muffled. ABDOMEN: Soft. NERVOUS SYSTEM: No focal deficit. DISCHARGE ADVICE AND MEDICATIONS: 1. Diet is cardiac. 2. Activity limited until followup. 3. Follow up with Dr. Stanley in 2-3 days. 4. Follow up with multiple consultants as recommended. 5. Antibiotics are Augmentin 1 b.i.d. for one week. 6. Flomax 0.4 daily. 7. Pepcid 20 mg b.i.d. 8. Senokot p.r.n. 9. Insulin Humalog Mix 70/30: 30 units subcutaneously at bedtime subcutaneously daily. 10.Lipitor 20 mg at bedtime. MMODL / IJN: [id number] / MTDD
== END 2021-11-10 14:32 | disposition home or self-care (01) | DRG 391 ==
LOC: EC 17:10 → 4SSUR 21:32 → OBSVTOIN 11-05 10:08
PROVIDERS: ADMIT Hospitalist; ATTEND Hospitalist
DX: K57.32 Diverticulitis of large intestine without perforation or abscess without bleeding (principal); N17.0 Acute kidney failure with tubular necrosis; E11.9 Type 2 diabetes mellitus without complications; Z79.4 Long term (current) use of insulin; Z20.822 Contact with and (suspected) exposure to COVID-19; N40.1 Benign prostatic hyperplasia with lower urinary tract symptoms; R33.8 Other retention of urine; I10 Essential (primary) hypertension; E86.0 Dehydration; K59.00 Constipation, unspecified; E78.5 Hyperlipidemia, unspecified; E66.9 Obesity, unspecified; Z68.31 Body mass index [BMI] 31.0-31.9, adult; Z79.899 Other long term (current) drug therapy; Z87.440 Personal history of urinary (tract) infections; Z90.49 Acquired absence of other specified parts of digestive tract; Z87.19 Personal history of other diseases of the digestive system; Z98.890 Other specified postprocedural states; Z71.3 Dietary counseling and surveillance
CPT/HCPCS: 36415; 74176; 76770; 80048; 80053; 81003; 83036; 83605; 83690; 83735; 84484; 85025; 87040; 87635; 93005; 93306; 96361; 96374; 96375; 96376; 99285